=== PATIENT | male | born 1960 | race Caucasian/White ===

== ENCOUNTER 2016-02-16 17:54 | Emergency (ER) | payer OTHER ==
[~2016-02-16] VITALS: Ht 180.3 cm; Wt 99.7 kg
[~2016-02-16 17:54] MED LIST: ADVIN50050 INH; ALBUAER19 INH; BENZ100C7 PO; DXY100 PO; Fluticasone Propionate; GUAISYP4 PO; PRT40 PO; SNG10 PO
[2016-02-16 17:57] VITALS: TEMP 36.7; Ht 180.3 cm; Wt 99.7 kg
[2016-02-16] MEDS ORDERED: ONDANSETRON INJ 2 MG/ML 2 ML VIAL IV STA (18:07)
[2016-02-16] MEDS ORDERED: SODIUM CHLORIDE 0.9% 1000ML 1,000 ML IV STA (18:07)
--- NOTE | 2016-02-16 18:17 | EMERGENCY ROOM VISIT NOTE ---
History Report prepared by Savanah: Devora Foreman Under the Supervision of: Dr. Carlos Fuentes D.O. 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 He currently rates the pain as a 7/10 in severity. He states he also has been having nausea and vomiting and his abdomen feels bloated. The patient states that he also notices that he has tenderness in his testicles associated with his symptoms along with left sided back pain and occasionally sharp chest pain. He denies any fever or chills or blood in his stool. He states that he drinks occasionally and had 2 drinks last night at a family function but does not think that his drinking got out of control last night. He states that he has been treated for a respiratory infection lately but that his cough has not seemed to improve. He denies any history of kidney stones. 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 Review of Systems See HPI for pertinent positives & negatives. A total of 10 systems reviewed and were otherwise negative. Family History Cancer Social History Smoking Status: Never Smoker Alcohol Use: occasionally Marital Status: Housing Status: lives with family Occupation Status: employed Current/Historical Medications Scheduled Albuterol Inhaler (Ventolin Inhaler), 2 PUFFS INH QID Levofloxacin (Levaquin), 750 MG PO DAILY Ondasetron Odt (Zofran Odt), 4 MG SL Q6H Tamsulosin Hcl (Flomax), 0.4 MG PO DAILY Scheduled PRN Oxycodone Immediate Rel Tab (Roxicodone Ir), 1-2 TAB PO Q4H PRN for Severe Pain Allergies Coded Allergies: No Known Allergies (Verified , 02/16/16) Physical Exam Vital Signs Date Time Temp Pulse Resp B/P Pulse Ox O2 Delivery O2 Flow Rate FiO2 02/16/16 20:09 77 20 156/88 97 Room Air 02/16/16 18:33 67 02/16/16 17:57 36.7 78 20 164/96 96 Room Air Physical Exam GENERAL: Patient is awake, alert, somewhat anxious and uncomfortable. EYES: The conjunctivae are clear. The pupils are round and reactive. EARS, NOSE, MOUTH AND THROAT: The nose is without any evidence of any deformity. Mucous membranes are moist tongue is midline NECK: The neck is nontender and supple. RESPIRATORY: Normal respiratory effort is noted there is no evidence of wheezing rhonchi or rales CARDIOVASCULAR: Regular rate and rhythm noted there no murmurs rubs or gallops normal S1 normal S2 GASTROINTESTINAL: The abdomen moderately distended and tender, guarding in both left and right lower quadrants. BACK: No midline tenderness or or step-off noted range of motion in flexion extension as well as rotation no signs of muscle spasm noted. Right CVA tenderness to percussion, no left CVA tenderness. MUSCULOSKELETAL/EXTREMITIES: There is no evidence of gross deformity full range of motion is noted in the hips and shoulders SKIN: There is no obvious evidence of any rash. There are no petechiae, pallor or cyanosis noted. NEUROLOGIC: Patient is awake alert and oriented x3 strength is symmetric patellar reflexes are 2+ bilaterally Medical Decision & Procedures ER Provider Diagnostic Interpretation: X-ray results as stated below per interpretation by me and the radiologist. CHEST ONE VIEW PORTABLE CLINICAL HISTORY: Abdominal pain and nausea. COMPARISON STUDY: Chest radiograph February 06, 2016. FINDINGS: Lung volumes are normal. There is no pneumothorax or pleural effusion. Bibasilar opacities favor atelectasis. Cardiomediastinal silhouette is stable. There is no evidence of pulmonary edema. IMPRESSION: Diminished lung volumes with suspected bibasilar atelectasis. Electronically signed by: Onel Villar M.D. 02/16/2016 6:47 PM Dictated Date/Time: 02/16/2016 6:[address] results as stated below per my review and radiologist interpretation. CT OF THE ABDOMEN AND PELVIS WITHOUT CONTRAST CLINICAL HISTORY: Right flank pain. COMPARISON STUDY: No previous studies for comparison. TECHNIQUE: Axial images of the abdomen and pelvis were obtained without IV contrast. Images were reviewed in the axial, sagittal, and coronal planes. FINDINGS: There is mild to moderate right hydroureteronephrosis due to a 3 mm mid right ureteral calculus located at the level of the upper sacrum. No additional ureteral calculi are present. There is no left hydronephrosis. There is a gallstone within the gallbladder. Evaluation of the abdomen and pelvis is suboptimal on this unenhanced exam. The liver, spleen, adrenal glands and pancreas are unremarkable. There is no evidence for a bowel obstruction. There is left colon diverticulosis without evidence for acute diverticulitis. The appendix is normal. There is no lymphadenopathy. No suspicious skeletal lesions are identified. IMPRESSION: 1. 3 mm mid right ureteral calculus with resultant mild to moderate right hydroureteronephrosis. 2. Cholelithiasis. Electronically signed by: Onel Villar M.D. 02/16/2016 7:02 PM Dictated Date/Time: 02/16/2016 6:57 PM Laboratory Results 02/16/16 18:13 Red Blood Count 5.26, Mean Corpuscular Volume 82.1, Mean Corpuscular Hemoglobin 29.5, Mean Corpuscular Hemoglobin Concent 35.9, Mean Platelet Volume 8.9, Neutrophils (%) (Auto) 84.5, Lymphocytes (%) (Auto) 7.3, Monocytes (%) (Auto) 7.3, Eosinophils (%) (Auto) 0.2, Basophils (%) (Auto) 0.2, Neutrophils # (Auto) 10.95, Lymphocytes # (Auto) 0.95, Monocytes # (Auto) 0.95, Eosinophils # (Auto) 0.02, Basophils # (Auto) 0.02 02/16/16 18:13 Test 02/16/16 18:13 02/16/16 19:00 White Blood Count 12.95 K/uL (4.8-10.8) Red Blood Count 5.26 M/uL (4.7-6.1) Hemoglobin 15.5 g/dL (14.0-18.0) Hematocrit 43.2 % (42-52) Mean Corpuscular Volume 82.1 fL (80-100) Mean Corpuscular Hemoglobin 29.5 pg (25-34) Mean Corpuscular Hemoglobin Concent 35.9 g/dl (32-36) Platelet Count 314 K/uL (130-400) Mean Platelet Volume 8.9 fL (7.4-10.4) Neutrophils (%) (Auto) 84.5 % Lymphocytes (%) (Auto) 7.3 % Monocytes (%) (Auto) 7.3 % Eosinophils (%) (Auto) 0.2 % Basophils (%) (Auto) 0.2 % Neutrophils # (Auto) 10.95 K/uL (1.4-6.5) Lymphocytes # (Auto) 0.95 K/uL (1.2-3.4) Monocytes # (Auto) 0.95 K/uL (0.11-0.59) Eosinophils # (Auto) 0.02 K/uL (0-0.5) Basophils # (Auto) 0.02 K/uL (0-0.2) RDW Standard Deviation 39.0 fL (36.4-46.3) RDW Coefficient of Variation 12.9 % (11.5-14.5) Immature Granulocyte % (Auto) 0.5 % Immature Granulocyte # (Auto) 0.06 K/uL (0.00-0.02) Prothrombin Time 10.7 SECONDS (9.0-12.0) Prothromb Time International Ratio 1.0 (0.9-1.1) Activated Partial Thromboplast Time 28.2 SECONDS (21.0-31.0) Partial Thromboplastin Ratio 1.1 Anion Gap 11.0 mmol/L (3-11) Est Creatinine Clear Calc Drug Dose 104.6 ml/min Estimated GFR () 102.7 Estimated GFR (Non- 88.6 BUN/Creatinine Ratio 14.8 (10-20) Calcium Level 9.0 mg/dl (8.5-10.1) Total Bilirubin 0.6 mg/dl (0.2-1) Direct Bilirubin 0.1 mg/dl (0-0.2) Aspartate Amino Transf (AST/SGOT) 19 U/L (15-37) Alanine Aminotransferase (ALT/SGPT) 31 U/L (12-78) Alkaline Phosphatase 87 U/L (45-117) Total Creatine Kinase 74 U/L (39-308) Creatine Kinase MB 0.7 ng/ml (0.5-3.6) Creatine Kinase MB Ratio 0.9 (0-3.0) Troponin I < 0.015 ng/ml (0-0.045) Total Protein 7.3 gm/dl (6.4-8.2) Albumin 4.1 gm/dl (3.4-5.0) Lipase 98 U/L (73-393) Urine Color YELLOW Urine Appearance CLEAR (CLEAR) Urine pH 7.0 (4.5-7.5) Urine Specific [place] 1.018 (1.000-1.030) Urine Protein NEG (NEG) Urine Glucose (UA) NEG (NEG) Urine Ketones 2+ (NEG) Urine Occult Blood 2+ (NEG) Urine Nitrite NEG (NEG) Urine Bilirubin NEG (NEG) Urine Urobilinogen NEG (NEG) Urine Leukocyte Esterase SMALL (NEG) Urine WBC (Auto) 10-30 /hpf (0-5) Urine RBC (Auto) 10-30 /hpf (0-4) Urine Hyaline Casts (Auto) 1-5 /lpf (0-5) Urine Epithelial Cells (Auto) >30 /lpf (0-5) Urine Bacteria (Auto) NEG (NEG) Laboratory results per my review. Medications Administered Medications (Trade) Dose Ordered Sig/Erica Route Start Time Stop Time Status Last Admin Dose Admin Sodium Chloride (Nss 1000ml) 1,000 ml @ 999 mls/hr Q1H1M STAT IV 02/16/16 18:07 02/16/16 19:07 DC 02/16/16 18:21 999 MLS/HR Morphine Sulfate (MoRPHine SULFATE INJ) 4 mg Q15M PRN IV 02/16/16 18:15 02/16/16 20:35 DC 02/16/16 19:23 4 MG Ondansetron HCl (Zofran Inj) 4 mg NOW STAT IV 02/16/16 18:07 02/16/16 18:09 DC 02/16/16 18:21 4 MG Ketorolac Tromethamine (Toradol Inj) 30 mg NOW STAT IV 02/16/16 19:18 02/16/16 19:19 DC 02/16/16 19:23 30 MG Levofloxacin (Levaquin Tab) 750 mg ONE STAT PO 02/16/16 19:53 02/16/16 19:54 DC 02/16/16 20:08 750 MG Ondansetron HCl (ZOFRAN ODT 4MG Home Pack) 1 homepack UD ONCE PO 02/16/16 20:00 02/16/16 20:01 DC 02/16/16 20:08 1 HOMEPACK Oxycodone HCl (Roxicodone Immediate Rel 5MG Home Pack) 1 homepack UD ONCE PO 02/16/16 20:00 02/16/16 20:01 DC 02/16/16 20:08 1 HOMEPACK Tamsulosin HCl (Flomax Cap) 0.4 mg NOW ONCE PO 02/16/16 20:00 02/16/16 20:01 DC 02/16/16 20:08 0.4 MG ECG Indication: abdominal pain Rate (beats per minute): 65 Rhythm: normal sinus Findings: no ectopy, other (no acute ST segment elevation) Comparison ECG Date: August 28 2014 Change: no significant change ED Course 1805: The patient was evaluated in room C12B. A complete history and physical examination were performed. 1806: Ordered Zofran Inj 4 mg IV, NSS 1,000 ml @ 999 mls/hr IV 1814: Ordered Morphine Sulfate 4 mg IV 1917: Ordered Toradol Inj 30 mg IV 1952: Ordered Levaquin Tab 750 mg PO. 1954: Upon reevaluation, the patient is resting comfortably expressing the desire to go home. I discussed the results and treatment plan with him. He verbalized agreement of the treatment plan. The patient was discharged home. 1999: Ordered Flomax Cap 0.4 mg PO, Oxycodone HCl 1 homepack PO, Ondansetron HCl 1 homepack PO. Medical Decision Differential diagnosis: Etiologies such as appendicitis, diverticulitis, PUD, biliary pathology, UTI, pancreatitis, obstruction, mesenteric ischemia, aortic pathology, infections, inflammatory bowel disease, renal colic, as well as others were entertained. Nursing notes reviewed. The patient is a 55-year-old male who presented to the emergency department for evaluation of right flank pain. The patient's history and physical exam appeared to be consistent with renal colic. Patient was treated with IV fluids IV pain medicine and IV antiemetics the emergency department. He was also given antibiotics in the emergency department after his urinalysis revealed signs of possible infection. I discussed the patient's laboratory and radiographic studies with him. He was reevaluated multiple times. On subsequent reevaluation he was feeling somewhat better but he was certainly not pain-free. The patient was started on Flomax as well. I offered to have the patient evaluated by the hospitalist for possible inpatient management and further pain management. The patient did not wish to stay in the hospital. He wanted to be discharged to home. He was started on a course of antibiotics and pain medication. He was encouraged to drink plenty clear liquids and follow-up with his family doctor this week. He was also encouraged to return to the emergency department immediately if symptoms change worsen or the need arises. Impression Primary Impression: Renal colic on right side Additional Impressions: Hydronephrosis of right kidney, Right flank pain, Right kidney stone Scribe Attestation The scribe's documentation has been prepared under my direction and personally reviewed by me in its entirety. I confirm that the note above accurately reflects all work, treatment, procedures, and medical decision making performed by me. Departure Information Dispostion Home / Self-Care Prescriptions Levofloxacin (Levaquin) 750 Mg Tab 750 MG PO DAILY, #7 TAB Prov: Carlos Fuentes, DO 02/16/16 Ondasetron Odt (ZOFRAN ODT) 4 Mg Tab 4 MG SL Q6H for Nausea, #15 TAB Prov: Carlos Fuentes, DO 02/16/16 Oxycodone Immediate Rel Tab (ROXICODONE IR) 5 Mg Tab 1-2 TAB PO Q4H Y for Severe Pain, #24 TAB Prov: Carlos Fuentes, DO 02/16/16 Tamsulosin Hcl (FLOMAX) 0.4 Mg Cap 0.4 MG PO DAILY, #10 CAP Prov: Carlos Fuentes, DO 02/16/16 Referrals Robin Butts M.D. (PCP) Forms Call Back Authorization, HOME CARE DOCUMENTATION FORM, IMPORTANT VISIT INFORMATION, My [facility] Patient Instructions A Signature Page Additional Instructions Call your family to schedule a follow-up appointment tomorrow. Drink plenty of clear liquids. Continue all medications as prescribed. Continue using Motrin and Tylenol as directed for mild pain. Return to the emergency department immediately if symptoms change worsen or if the need arises. Especially return if he develops severe pain which is not controlled by the pain medication high fever severe nausea vomiting or any other worrisome symptoms.
[2016-02-16] MEDS: MoRPHine SULFATE 4 MG/ML 1 ML CARP\\VIAL IV PRN ×2 (18:21→19:23)
[2016-02-16 18:26] LABS: BASO % 0.2 %; BASO ABS # 0.02 K/uL (0-0.2); COMPLETE YES; EOS % 0.2 %; HEMATOCRIT 43.2 % (42-52); IG% 0.5 %; LYMPH % 7.3 %; LYMPH ABS # 0.95 K/uL (1.2-3.4); MEAN CELL VOLUME 82.1 fL (80-100); MEAN CORPUSCULAR HEMOGLOBIN 29.5 pg (25-34); MEAN CORPUSCULAR HGB CONC 35.9 g/dl (32-36); MEAN PLATELET VOLUME 8.9 fL (7.4-10.4); MONO % 7.3 %; NEUT % 84.5 %; PLATELET COUNT 314 K/uL (130-400); RED BLOOD COUNT 5.26 M/uL (4.7-6.1); WHITE BLOOD COUNT 12.95 K/uL (4.8-10.8)
[2016-02-16 18:37] LABS: PARTIAL THROMBOPLASTIN RATIO 1.1; PROTHROMBIN TIME (PATIENT) 10.7 SECONDS (9.0-12.0)
--- NOTE | 2016-02-16 18:49 | DIAGNOSTIC IMAGING REPORT ---
CHEST ONE VIEW PORTABLE CLINICAL HISTORY: Abdominal pain and nausea. COMPARISON STUDY: Chest radiograph February 06, 2016. FINDINGS: Lung volumes are normal. There is no pneumothorax or pleural effusion. Bibasilar opacities favor atelectasis. Cardiomediastinal silhouette is stable. There is no evidence of pulmonary edema. IMPRESSION: Diminished lung volumes with suspected bibasilar atelectasis. Electronically signed by: Onel Villar M.D. 02/16/2016 6:47 PM Dictated Date/Time: 02/16/2016 6:46 PM
[2016-02-16 18:51] LABS: ALT/SGPT 31 U/L (12-78); BLOOD UREA NITROGEN 14 mg/dl (7-18); BUN/CREATININE RATIO 14.8 (10-20); CARBON DIOXIDE 24 mmol/L (21-32); CHLORIDE 104 mmol/L (98-107); CREATININE 0.96 mg/dl (0.60-1.40); GLUCOSE 96 mg/dl (70-99); POTASSIUM 4.2 mmol/L (3.5-5.1); SODIUM 139 mmol/L (136-145)
[2016-02-16 18:56] LABS: ALKALINE PHOSPHATASE 87 U/L (45-117); AST/SGOT 19 U/L (15-37); CKMB/CK RATIO 0.9 (0-3.0)
--- NOTE | 2016-02-16 19:03 | DIAGNOSTIC IMAGING REPORT ---
CT OF THE ABDOMEN AND PELVIS WITHOUT CONTRAST CLINICAL HISTORY: Right flank pain. COMPARISON STUDY: No previous studies for comparison. TECHNIQUE: Axial images of the abdomen and pelvis were obtained without IV contrast. Images were reviewed in the axial, sagittal, and coronal planes. FINDINGS: There is mild to moderate right hydroureteronephrosis due to a 3 mm mid right ureteral calculus located at the level of the upper sacrum. No additional ureteral calculi are present. There is no left hydronephrosis. There is a gallstone within the gallbladder. Evaluation of the abdomen and pelvis is suboptimal on this unenhanced exam. The liver, spleen, adrenal glands and pancreas are unremarkable. There is no evidence for a bowel obstruction. There is left colon diverticulosis without evidence for acute diverticulitis. The appendix is normal. There is no lymphadenopathy. No suspicious skeletal lesions are identified. IMPRESSION: 1. 3 mm mid right ureteral calculus with resultant mild to moderate right hydroureteronephrosis. 2. Cholelithiasis. Electronically signed by: Onel Villar M.D. 02/16/2016 7:02 PM Dictated Date/Time: 02/16/2016 6:57 PM
[2016-02-16] MEDS ORDERED: KETOROLAC TROMETHAMINE 30 MG/ML VIAL IV STA (19:18)
[2016-02-16 19:46] LABS: URINE APPEARANCE CLEAR (CLEAR); URINE BILIRUBIN NEG (NEG); URINE COLOR YELLOW; URINE EPITHELIAL CELL AUTO >30 /lpf (0-5); URINE NITRITE NEG (NEG); URINE SPECIFIC GRAVITY 1.018 (1.000-1.030); UROBILINOGEN NEG (NEG)
[2016-02-16 19:50] LABS: MANUAL MICROSCOPIC REQUIRED? NO; REVIEW REQ? NO
[2016-02-16] MEDS ORDERED: LEVOFLOXACIN 750 MG TAB PO STA (19:53)
[2016-02-16] MEDS ORDERED: TAMS0.4C38 PO (19:59)
[2016-02-16] MEDS ORDERED: ONDA4TAB10 SL (19:59)
[2016-02-16] MEDS ORDERED: OXYC1TAB3 PO (19:59)
[2016-02-16] MEDS ORDERED: LEVO1TAB35 PO (19:59)
[2016-02-16] MEDS ORDERED: ONDANSETRON HOME PACK 4MG OD TAB PO ONE (20:00)
[2016-02-16] MEDS ORDERED: TAMSULOSIN HCL 0.4 MG CAP PO ONE (20:00)
[2016-02-16] MEDS ORDERED: OXYCODONE IR HOME PACK PO ONE (20:00)
[2016-02-16 20:09] VITALS: BP 156/88; PULSE 77; O2SAT 97
== END 2016-02-16 20:26 | disposition home or self-care (01) ==
LOC: C.EDB 17:56 → C.EDC 20:26
DX: N23 Unspecified renal colic (principal); N13.2 Hydronephrosis with renal and ureteral calculous obstruction; Z80.9 Family history of malignant neoplasm, unspecified; Z79.899 Other long term (current) drug therapy

== ENCOUNTER → 2016-02-26 | Outpatient (CLI) | payer OTHER ==
[~2016-02-26] MED LIST changes: -ADVIN50050 INH; -BENZ100C7 PO; +CIPR-255 PO; -DXY100 PO; -Fluticasone Propionate; -GUAISYP4 PO; +LEVO1TAB35 PO; +METR-162 PO; +ONDA4TAB10 SL; +OXYC1TAB3 PO; -PRT40 PO; -SNG10 PO; +TAMS0.4C38 PO; +VNTHFA/IN INH
--- NOTE | 2016-02-27 06:17 | PAP/PSG TECHNICIAN REPORT ---
[facility] Supervisor Carpenters Polysomnogram Report Study name: None Report date: 02/27/2016 Study date: 02/26/2016 Referring Physician: Daly Oliva PA-C, PA-C Name: ZHOU FERRER Interpreting Physician: Joe Troncoso M.D. Date of : 1960 Supervisor Carpenters: Karuna Velasquez RPS. Sex: Male Age: 55 Study Type: PSG Weight: 216 lbs Height: 55 years, Height 5' 11" BMI: 30.12 Medications: MULTI VIT, VIT C 500 MG Patient History 55 yr-old male here for a baseline study. He has a history of snoring, daytime sleepiness, morning headaches, and frequent awakenings. His [place] scale is 6. He slept with the head of his bed elevated. The test was started on room air. ETCO2 testing was not utilized during this study. Room 7 Parameters Monitored NPSG: E1-M2, E2-M1, Fp1-M2, Fp2-M1, F3-M2, F4-M2, F4-M1, C3-M2, C4-M2, C4-M1, O1-M2, O2-M2, O2-M1, T3-M2, T4-M1, P3-M2, P4-M1, CHIN1, CHIN2, HR, EKG, Legs, PFLOW, SNOR, FLOW, CFLOW, [place] Volume, THOR, ABDO, SpO2, PLTH, CPRESS, ETCO2 Wave, ETCO2, pH Sleep Architecture Sleep Stages Time at Lights Off 10:30:09 PM STAGES Time (min.) TST (%) Time at Lights On 5:52:09 AM Wake 17.0 -- Total Recording Time (TRT) 442.00 min. N1 36.5 9 Total Sleep Period (TSP) 439.0 min. N2 252.5 59 Total Sleep Time (TST) 425.0min. N3 30.0 7 Awake Time 17.0 min. REM 106.0 25 Wake after Sleep Onset 14.0 min. Sleep Efficiency (SE) 96 % Sleep Onset Latency (TREASURE) 3.0 min. Number of Stage 1 Shifts None Awakenings 11 Stage Changes 87 Number of REM periods 6 REM 106.0 25 REM Latency 51.5 min. NREM 319.0 75 Body Position Analysis Supine Right Left Side Prone Vertical Total Sleep Time (min.) 412.4 28.6 0.0 28.60 0.0 0.0 Total Sleep Time (%) 93% 7% 0% 7 0% N/A% Total Sleep Time REM (min.) 106.0 0.0 0.0 None 0.0 0.0 Total Sleep Time NREM (min.) 290.4 28.6 0.0 None 0.0 0.0 Intermittent Wake (min.) 16.0 1.0 0.0 None 0.0 0.0 Total Sleep Period (%) 93% None None None None None Arousals Myoclonus (PLM) * Events Count Index Events Count Index Spontaneous 60 8 Events Awake (PLMW) 17 60.0 Respiratory 2 0.4 Events Asleep w/ Arousal (PLMA) 27 3.8 PLM 27 4 Events Asleep w/o Arousal (PLMS) 177 25.0 Snoring 8 1 Total Asleep 204 28.8 Total 96 14 Total 221 30 Respiratory Analysis * CA OA MA CH H RERA Total Count 4 4 0 0 26 3 34 Index 0.6 0.6 0.0 0 3.7 0 5.2 Mean Duration 12.5 12.6 0.0 0.00 15.1 14.7 14.5 Longest Duration 14.5 14.0 0.0 0.00 0.0 14.9 18.5 Respiratory Event Summary Total Supine ~Supine Right Left Prone REM NREM Apneas Count 8 8 0 0 N/A N/A 0 8 Index 1.1 1 0 0.0 N/A N/A 0 2 Hypopneas (4% Desat) Count 26 26 0 0 N/A N/A 18 8 Index 3.7 3.9 0 0.0 N/A N/A 10.2 1.5 Apneas & All Hypopneas Count 34 34 0 0 N/A N/A 18 16 Index 4.8 5 0 0 N/A N/A 10.2 3.0 Respiratory Events (Floriculturist+All Hyp+RERA) Count 34 37 0 0 N/A N/A 18 16 Index 5.2 6 0 0.0 N/A N/A 10.8 3.4 Respiratory Related Arousal Count 2 37 0 0 N/A N/A 1 2 Index 0.4 0 0 0 N/A N/A 1 0 Snoring Analysis Supine Right Left Prone REM NREM Total Snore duration 5.0 min Snores count 284 22 N/A N/A 116 190 306 Snore mean duration 1.0 Sec Snores index 43 46 N/A N/A 65.7 35.7 43.2 TST with snoring (%) 1.2% Desaturation Event Summary: Minimum %SpO2 Event Count Mean/Min/Max Duration(sec.) Desaturation Index % Time In Bed > 90 38 29.2 / 8.3 / 60.0 6.0 86.6 86 - 90 4 14.9 / 8.3 / 26.3 4.0 13.4 81 - 85 0 N/A 0.0 0.0 76 - 80 0 N/A 0.0 0.0 71 - 75 0 N/A 0.0 0.0 66 - 70 0 N/A 0.0 0.0 61 - 65 0 N/A 0.0 0.0 56 - 60 0 N/A 0.0 0.0 51 - 55 0 N/A 0.0 0.0 < 50 0 N/A 0.0 0.0 Total REM NREM Awake <50% 0.0 min. 0.0 min. 0.0 min. 0.0 min. 51 - 60% 0.0 min. 0.0 min. 0.0 min. 0.0 min. 61 - 70% 0.0 min. 0.0 min. 0.0 min. 0.0 min. 71 - 80% 0.0 min. 0.0 min. 0.0 min. 0.0 min. 81 - 90% 59.3 min. 21.8 min. 37.5 min. 0.0 min. 91 - 100% 382.5 min. 84.2 min. 281.6 min. 16.8 min. Average 92 92 92 93 Minimum SpO2 86 86 88 91 Desaturation Event Index 5.2 10.8 3.4 3.5 # Desat. Events below 89% 13 11 2 N/A Time(%) with Saturation below 89% 0.7 0.6 0.1 0.0 Time(min.) with Saturation below 89% 3.0 2.7 0.3 0.0 Time (mins) REM (mins) NREM (mins) % of TST SpO2 Below 90% 30 18 N12 2.3 SpO2 Below 88% 6 0 0 0 Heart Rate Analysis Min (bpm) Max (bpm) Average (bpm) Awake 58 96 68 NREM 55 80 62 REM 53 93 62 Overall 53 93 62 Supplemental O2 Values Minimum O2 level: None Value Start Time End Time Supervisor Carpenters Comments Mr. Ferrer slept in the right and supine positions. No cardiac arrhythmias were noted. PLMs were noted throughout the study. No bruxism noted. Snoring was noted and scored as a 2 on a scale of 1 through 5. (0=no snoring, 5=snoring loud enough to be heard through a closed door or down the [address]in way) He did not wake up to use the restroom during the night. Mr. Ferrer stated that he didn't sleep quite as well as at home The final report will be interpreted and signed by a sleep physician. The completed physician report will then be placed in the patient medical record. Therapy (cm H2O) 0 TIB (min.) 442.0 TST (min.) 425.0 Sleep Onset (min.) 3.0 REM Onset From Sleep (min.) 51.5 Sleep Efficiency % 96 Wakefulness (%) 4 Wakefulness (min.) 17.0 NREM 1 (%) 9 NREM 1 (min.) 36.5 NREM 2 (%) 59 NREM 2 (min.) 252.5 NREM 3 (%) 7 NREM 3 (min.) 30.0 REM (%) 25 REM (min.) 106.0 # Arousals 96 Arousal Index 14 # Snore 306 Snore Index 43.2 AHI 4.8 AHI Supine 5 AHI Non-Supine 0 NREM AHI 3.0 REM AHI 10.2 RDI 5.2 # Obstructive Apnea 4 # Central Apnea 4 # Mixed Apnea 0 # Hypopneas 26 RERAs 3 Total Respiratory Events 37 Time Below SpO2 89% (min.) 3.0 Mean NREM SpO2 (%) 92 Mean REM SpO2 (%) 92 Mean Sleep SpO2 (%) 92 Min NREM SpO2 (%) 88 Min REM SpO2 (%) 86 Position Supine (min.) 412.4 Position Non-supine (min.) 28.6 LM Index Sleep 28.8 LM Index NREM 36.3 LM Index REM 6.2 Mean Heart Rate (bpm) 62 Min Heart Rate (bpm) 53
--- NOTE | 2016-02-28 02:58 | POLYSOMNOGRAPH REPORT ---
CLINICAL DATA: A 55-year-old male with BMI of 30 referred by Daly Oliva, Dr. Black and Dr. Butts for evaluation of possible sleep apnea, who has a history of snoring, daytime sleepiness, morning headache and frequent awakenings. He did sleep with head of his bed elevated. SLEEP ARCHITECTURE: Total sleep period was 439 minutes. Total sleep time was 425 minutes divided between 319 minutes of non-REM sleep and 106 minutes of REM sleep. Sleep onset latency was 3 minutes. REM latency was 51.5 minutes. Sleep efficiency was 96%. Awake after sleep onset was 14 minutes. Sleep consisted of stage N1 9%, N2 59%, N3 7%, and REM 25%. AROUSAL DATA: 96 arousals recorded for an index of 14 per hour. 60 were spontaneous arousals. PLM DATA: Mildly elevated limb movements during sleep were noted. There were 204 limb movements during sleep were noted for an index of 28.8 per hour with arousal index of 3.8 per hour. RESPIRATORY DATA: There was no evidence of clinically significant sleep apnea/hypopnea was noted. The AHI was 4.8. There were 4 central and 4 obstructive apneic episodes. The longest duration of apnea was 14.5 seconds. There were 26 hypopneic episodes. The mean duration of hypopnea was 15.1 seconds. OXIMETRY DATA: Transient nocturnal hypoxemia was seen. Oxygen tia was 86%. Mean saturation was 92%. Time below 88% was 86 minutes. EKG: Heart rates ranged from 55-93 beats per minute. No arrhythmias were noted. COMMUNICATIONS ADVISOR'S COMMENTS: The patient slept in the right and supine positions. PLMs were noted throughout the study. Snoring was mild, rated 2 on a scale of 1-5. IMPRESSION: No evidence of clinically significant sleep apnea/hypopnea with an apnea-hypopnea index of 4.8 with mild nocturnal hypoxemia and mildly elevated limb movements during sleep. RECOMMENDATIONS: The patient may benefit from weight loss or possibly an oral appliance for snoring. Clinical correlation is needed. KSENIA
== END | disposition home or self-care (01) ==
LOC: C.NEUR 21:00
PROVIDERS: ATTEND Internal Medicine Pulmonary Disease
DX: R40.0 Somnolence (principal); R06.83 Snoring; J42 Unspecified chronic bronchitis; R05 Cough; R91.1 Solitary pulmonary nodule

== ENCOUNTER 2016-07-20 13:52 | Emergency (ER) | payer OTHER ==
[~2016-07-20] VITALS: Ht 180.3 cm; Wt 99.7 kg
[~2016-07-20 13:52] MED LIST changes: -CIPR-255 PO; -METR-162 PO; -TAMS0.4C38 PO; -VNTHFA/IN INH
[2016-07-20 13:54] VITALS: TEMP 36.8; Ht 180.3 cm; Wt 99.7 kg
--- NOTE | 2016-07-20 14:05 | EMERGENCY ROOM VISIT NOTE ---
History Report prepared by Savanah: Nba Rocha Under the Supervision of: Dr. Carlos Fuentes D.O. First contact with patient: 13:58 Chief Complaint: ABDOMINAL PAIN Stated Complaint: LOWER ABD. PAIN History of Present Illness The patient is a 55 year old male who presents to the Emergency Room with complaints of constant lower abdominal pain beginning two days ago. He has a history of kidney stones and states that his current symptoms feel similar. He has been seen by his urologist for his pain, who thinks that his pain is likely diverticulitis. The patient also complains of nausea, and mild right sided back pain. He denies any vomiting, black or bloody stools, or fevers. He has no history of diverticulitis or surgeries. Source of History: patient Onset: Two days ago Position: abdomen (lower) Timing: constant Associated Symptoms: + nausea, + back pain (mild right side), No fevers, No vomiting, No melena, No hematochezia Review of Systems See HPI for pertinent positives & negatives. A total of 10 systems reviewed and were otherwise negative. Past Medical & Surgical Medical Problems: (1) Allergic rhinitis (2) Bronchitis (3) No Known Active Medical Problems (4) Pneumonia (5) Syncope Family History Cancer Social History Smoking Status: Never Smoker Alcohol Use: occasionally Marital Status: Housing Status: lives with family Occupation Status: employed Current/Historical Medications Scheduled Albuterol Hfa (Ventolin Hfa), 2-4 PUFFS INH Q6H Ciprofloxacin Hcl (Cipro), 500 MG PO BID Metronidazole (Flagyl), 500 MG PO TID Scheduled PRN Oxycodone Immediate Rel Tab (Roxicodone Ir), 1-2 TAB PO Q4H PRN for Severe Pain Allergies Coded Allergies: No Known Allergies (Verified , 07/20/16) Physical Exam Vital Signs Date Time Temp Pulse Resp B/P (MAP) Pulse Ox O2 Delivery O2 Flow Rate FiO2 07/20/16 15:28 58 17 112/55 96 Room Air 07/20/16 15:07 59 07/20/16 13:54 36.8 74 22 112/79 96 Room Air Physical Exam GENERAL: Patient is awake, alert, and in no acute distress. Patient is resting comfortably and showing no signs of anxiety EYES: The conjunctivae are clear. The pupils are round and reactive. EARS, NOSE, MOUTH AND THROAT: The nose is without any evidence of any deformity. Mucous membranes are moist tongue is midline NECK: The neck is nontender and supple. RESPIRATORY: Normal respiratory effort is noted there is no evidence of wheezing rhonchi or rales CARDIOVASCULAR: Regular rate and rhythm noted there no murmurs rubs or gallops normal S1 normal S2 GASTROINTESTINAL: The abdomen is moderately distended but soft. Bilateral lower abdominal tenderness to palpation with guarding in the RLQ. PELVIS: The Pelvis is stable. No tenderness to palpation is noted. BACK: Bilateral CVA tenderness to percussion, left greater than right. No midline tenderness. MUSCULOSKELETAL/EXTREMITIES: There is no evidence of gross deformity full range of motion is noted in the hips and shoulders SKIN: There is no obvious evidence of any rash. There are no petechiae, pallor or cyanosis noted. NEUROLOGIC: Patient is awake alert and oriented x3 Medical Decision & Procedures ER Provider Diagnostic Interpretation: CT results as stated below per my review and radiologist interpretation. ABDOMEN AND PELVIS CT WITHOUT CONTRAST FINDINGS: Focal thickening at the proximal sigmoid colon with mild pericolonic fat stranding. This is consistent with acute diverticulitis. No perforation or abscess identified at this time. Multiple colonic diverticula. Normal appendix. Tiny fat-containing umbilical hernia. Linear densities in groundglass densities within the bilateral lower lobes consistent with atelectasis. There are 2, 5 mm subpleural nodule seen within the left lower lobe and lingula on images 64 and 66 of 516. These are new from the prior study. Hepatic steatosis. Cholelithiasis. No gallbladder wall thickening. The unenhanced spleen, pancreas, and adrenal glands are unremarkable. No renal stones or hydronephrosis. No retroperitoneal lymphadenopathy. Mild bladder wall thickening is likely due to underdistention. The prostate gland is mildly enlarged. IMPRESSION: 1. Acute proximal sigmoid diverticulitis. No perforation or abscess at this time. 2. No renal stones or hydronephrosis. 3. Cholelithiasis. 4. Hepatic steatosis. 5. There are two, 5 mm indeterminate pulmonary nodules within the left lung base. Please refer to the chart below for recommended follow-up. Please refer to below summary of Fleischner criteria recommendations for follow-up of incidental CT nodules (Donna Gillespie, Guidelines for management of small pulmonary nodules detected on CT scans: A statement from the Fleischner Society, Radiology 237: [phone].) SOLID NODULES Solitary nodule size: <6 mm * Low risk patients: no follow-up needed * high risk patients: optional CT at 12 months Solitary nodule size: 6-8 mm * Low risk patients: follow-up at 6-12 months, then consider further follow-up at 18-24 months * high risk patients: initial follow-up CT at 6-12 months and then at 18-24 months if no change Solitary nodule size: >8 mm * either low or high risk patients - consider follow-up CT at 3 months, and/or CT-PET, and/or biopsy Multiple nodules size: <6 mm * Low risk patients: no routine follow-up * high risk patients: optional CT at 12 months Multiple nodules size: 6-8 mm * Low risk patients: follow-up at 3-6 months, then consider further follow-up at 18-24 months * high risk patients: follow-up at 3-6 months, then at 18-24 months if no change Multiple nodules size: >8 mm * Low risk patients: follow-up at 3-6 months, then consider further follow-up at 18-24 months * high risk patients: follow-up at 3-6 months, then at 18-24 months if no change Note: newly detected indeterminate nodule in persons 35 years of age or older. * Low risk patients: minimal or absent history of smoking and/or other known risk factors * high risk patients: history of smoking or of other known risk factors (e.g. first degree relative with lung cancer, or exposure to asbestos, radon, uranium) * if a nodule up to 8 mm is partly solid or is ground glass further follow-up is required after 24 months to exclude possible slow growing adenocarcinoma (WILMER) SUBSOLID NODULES Solitary pure ground-glass nodule * nodule size <6 mm - no CT follow-up required * nodule size >=6 mm - follow-up CT at 6-12 months, then every 2 years until 5 years Solitary part-solid nodule * nodule size <6 mm - no CT follow-up required * nodule size >=6 mm - follow-up CT at 3-6 months. If unchanged, and solid component remains <6 mm, then annual follow-up for 5 years Multiple subsolid nodules * nodule size <6 mm - follow-up CT at 3-6 months, consider further follow-up at 2 and 4 years if stable * nodule size >=6 mm - follow-up CT at 3-6 months, subsequent management based on the most suspicious nodule(s) Electronically signed by: Felton Benito M.D. Laboratory Results 07/20/16 14:20 Red Blood Count 5.00, Mean Corpuscular Volume 83.4, Mean Corpuscular Hemoglobin 30.0, Mean Corpuscular Hemoglobin Concent 36.0, Mean Platelet Volume 9.2, Neutrophils (%) (Auto) 68.1, Lymphocytes (%) (Auto) 18.2, Monocytes (%) (Auto) 12.2, Eosinophils (%) (Auto) 1.1, Basophils (%) (Auto) 0.1, Neutrophils # (Auto ) 4.86, Lymphocytes # (Auto) 1.30, Monocytes # (Auto) 0.87, Eosinophils # (Auto ) 0.08, Basophils # (Auto) 0.01 07/20/16 14:20 Test 07/20/16 14:20 White Blood Count 7.14 K/uL (4.8-10.8) Red Blood Count 5.00 M/uL (4.7-6.1) Hemoglobin 15.0 g/dL (14.0-18.0) Hematocrit 41.7 % (42-52) Mean Corpuscular Volume 83.4 fL (80-100) Mean Corpuscular Hemoglobin 30.0 pg (25-34) Mean Corpuscular Hemoglobin Concent 36.0 g/dl (32-36) Platelet Count 260 K/uL (130-400) Mean Platelet Volume 9.2 fL (7.4-10.4) Neutrophils (%) (Auto) 68.1 % Lymphocytes (%) (Auto) 18.2 % Monocytes (%) (Auto) 12.2 % Eosinophils (%) (Auto) 1.1 % Basophils (%) (Auto) 0.1 % Neutrophils # (Auto) 4.86 K/uL (1.4-6.5) Lymphocytes # (Auto) 1.30 K/uL (1.2-3.4) Monocytes # (Auto) 0.87 K/uL (0.11-0.59) Eosinophils # (Auto) 0.08 K/uL (0-0.5) Basophils # (Auto) 0.01 K/uL (0-0.2) RDW Standard Deviation 38.2 fL (36.4-46.3) RDW Coefficient of Variation 12.6 % (11.5-14.5) Immature Granulocyte % (Auto) 0.3 % Immature Granulocyte # (Auto) 0.02 K/uL (0.00-0.02) Urine Color YELLOW Urine Appearance CLEAR (CLEAR) Urine pH 5.5 (4.5-7.5) Urine Specific [place] 1.019 (1.000-1.030) Urine Protein NEG (NEG) Urine Glucose (UA) NEG (NEG) Urine Ketones 1+ (NEG) Urine Occult Blood NEG (NEG) Urine Nitrite NEG (NEG) Urine Bilirubin NEG (NEG) Urine Urobilinogen NEG (NEG) Urine Leukocyte Esterase NEG (NEG) Anion Gap 8.0 mmol/L (3-11) Est Creatinine Clear Calc Drug Dose 115.4 ml/min Estimated GFR () 112.6 Estimated GFR (Non- 97.2 BUN/Creatinine Ratio 12.4 (10-20) Calcium Level 8.3 mg/dl (8.5-10.1) Total Bilirubin 1.3 mg/dl (0.2-1) Direct Bilirubin 0.2 mg/dl (0-0.2) Aspartate Amino Transf (AST/SGOT) 16 U/L (15-37) Alanine Aminotransferase (ALT/SGPT) 27 U/L (12-78) Alkaline Phosphatase 106 U/L (45-117) Total Protein 7.1 gm/dl (6.4-8.2) Albumin 3.9 gm/dl (3.4-5.0) Lipase 79 U/L (73-393) Laboratory results per my review. Medications Administered Medications (Trade) Dose Ordered Sig/Erica Route Start Time Stop Time Status Last Admin Dose Admin Sodium Chloride 1,000 ml @ 999 mls/hr Q1H1M STAT IV 07/20/16 14:06 07/20/16 15:06 DC 07/20/16 14:06 999 MLS/HR Ciprofloxacin (Cipro Tab) 500 mg NOW STAT PO 07/20/16 14:55 07/20/16 14:56 DC 07/20/16 15:32 500 MG Metronidazole (Flagyl Tab) 500 mg NOW STAT PO 07/20/16 14:55 07/20/16 14:56 DC 07/20/16 15:32 500 MG ED Course 1402: The patient was evaluated in room C12B. A complete history and physical examination were performed. 1406: Ordered NSS 1,000 ml @ 999 mls/hr IV. 1455: Ordered Flagyl Tab 500 mg PO, Cipro Tab 500 mg PO. 1520: Upon reevaluation, the patient is resting comfortably. I discussed the results and treatment plan with him. He verbalized agreement of the treatment plan. The patient was discharged home. Medical Decision Differential diagnosis: Etiologies such as appendicitis, diverticulitis, PUD, biliary pathology, UTI, pancreatitis, obstruction, mesenteric ischemia, aortic pathology, infections, inflammatory bowel disease, renal colic, as well as others were entertained. Blood pressure screening: Patient was found to have normal blood pressure on screening and does not require follow-up. Medication Reconciliation: I attest that I have personally reviewed the patient' s current medications list. Nursing notes reviewed. The patient is a 55-year-old male who presented to the emergency department for lower abdominal pain. The patient is a history of kidney stones and had a problem with kidney stones earlier this year so he went to see his urologist for a follow-up appointment. He was sent to the emergency department by the urologist because of possible diverticulitis. The patient's history and physical exam appeared to be consistent with diverticulitis and his CAT scan did reveal diverticulitis as well. He was started on antibiotics new or department. He was treated with IV fluids. He was unable to get pain medication in the emergency department because he did not wish to call for a ride but he was given a prescription for pain medication upon discharge. I discussed the patient's laboratory and radiographic studies with him including the findings of the pulmonary nodule on CAT scan. He was encouraged to follow-up with his family doctor this week for reevaluation but return to the emergency apartment immediately if symptoms change worsen or the need arises. Impression Primary Impression: Diverticulitis Scribe Attestation The scribe's documentation has been prepared under my direction and personally reviewed by me in its entirety. I confirm that the note above accurately reflects all work, treatment, procedures, and medical decision making performed by me. Departure Information Dispostion Home / Self-Care Prescriptions Oxycodone Immediate Rel Tab (ROXICODONE IR) 5 Mg Tab 1-2 TAB PO Q4H Y for Severe Pain, #24 TAB Prov: Carlos Fuentes, DO 07/20/16 Metronidazole (FLAGYL) 500 Mg Tab 500 MG PO TID, #30 TAB Prov: Carlos Fuentes, DO 07/20/16 Ciprofloxacin Hcl (CIPRO) 500 Mg Tab 500 MG PO BID, #20 TAB Prov: Carlos Fuentes, DO 07/20/16 Referrals Robin Butts M.D. (PCP) Forms Call Back Authorization, HOME CARE DOCUMENTATION FORM, IMPORTANT VISIT INFORMATION Patient Instructions Diverticulosis Diverticulitis, [facility] Additional Instructions Continue all medications as prescribed. Drink plenty clear liquids. Continue using Motrin and Tylenol as directed for mild pain. Follow-up with your family this week. Return to the emergency department immediately if symptoms change worsen or the need arises. Problem Qualifiers Primary Impression: Diverticulitis Diverticulitis site: large intestine Diverticulitis bleeding: without bleeding Diverticulitis complication: without perforation or abscess Qualified Codes: K57.32 - Diverticulitis of large intestine without perforation or abscess without bleeding
[2016-07-20] MEDS ORDERED: SODIUM CHLORIDE 0.9% 1000ML 1,000 ML IV STA (14:06)
[2016-07-20] MEDS ORDERED: VNTHFA/IN INH (14:14)
[2016-07-20 14:37] LABS: BASO % 0.1 %; BASO ABS # 0.01 K/uL (0-0.2); COMPLETE YES; EOS % 1.1 %; HEMATOCRIT 41.7 % (42-52); IG% 0.3 %; LYMPH % 18.2 %; MEAN CELL VOLUME 83.4 fL (80-100); MEAN PLATELET VOLUME 9.2 fL (7.4-10.4); MONO % 12.2 %; NEUT % 68.1 %; PLATELET COUNT 260 K/uL (130-400); WHITE BLOOD COUNT 7.14 K/uL (4.8-10.8)
[2016-07-20 14:53] LABS: BUN/CREATININE RATIO 12.4 (10-20); CALCIUM 8.3 mg/dl (8.5-10.1); CREATININE 0.87 mg/dl (0.60-1.40); POTASSIUM 3.8 mmol/L (3.5-5.1)
--- NOTE | 2016-07-20 14:54 | DIAGNOSTIC IMAGING REPORT ---
ABDOMEN AND PELVIS CT WITHOUT CONTRAST CT DOSE: 1117.58 mGycm HISTORY: left abdominal sided pain, hx of kidney stones, poss diverticulitis TECHNIQUE: Multiaxial CT images of the abdomen and pelvis were performed without contrast. COMPARISON STUDY: Abdomen and pelvis CT 02/16/2016. FINDINGS: Focal thickening at the proximal sigmoid colon with mild pericolonic fat stranding. This is consistent with acute diverticulitis. No perforation or abscess identified at this time. Multiple colonic diverticula. Normal appendix. Tiny fat-containing umbilical hernia. Linear densities in groundglass densities within the bilateral lower lobes consistent with atelectasis. There are 2, 5 mm subpleural nodule seen within the left lower lobe and lingula on images 64 and 66 of 516. These are new from the prior study. Hepatic steatosis. Cholelithiasis. No gallbladder wall thickening. The unenhanced spleen, pancreas, and adrenal glands are unremarkable. No renal stones or hydronephrosis. No retroperitoneal lymphadenopathy. Mild bladder wall thickening is likely due to underdistention. The prostate gland is mildly enlarged. IMPRESSION: 1. Acute proximal sigmoid diverticulitis. No perforation or abscess at this time. 2. No renal stones or hydronephrosis. 3. Cholelithiasis. 4. Hepatic steatosis. 5. There are two, 5 mm indeterminate pulmonary nodules within the left lung base. Please refer to the chart below for recommended follow-up. Please refer to below summary of Fleischner criteria recommendations for follow-up of incidental CT nodules (Donna Gillespie, Guidelines for management of small pulmonary nodules detected on CT scans: A statement from the Fleischner Society, Radiology 237: [phone].) SOLID NODULES Solitary nodule size: <6 mm * Low risk patients: no follow-up needed * high risk patients: optional CT at 12 months Solitary nodule size: 6-8 mm * Low risk patients: follow-up at 6-12 months, then consider further follow-up at 18-24 months * high risk patients: initial follow-up CT at 6-12 months and then at 18-24 months if no change Solitary nodule size: >8 mm * either low or high risk patients - consider follow-up CT at 3 months, and/or CT-PET, and/or biopsy Multiple nodules size: <6 mm * Low risk patients: no routine follow-up * high risk patients: optional CT at 12 months Multiple nodules size: 6-8 mm * Low risk patients: follow-up at 3-6 months, then consider further follow-up at 18-24 months * high risk patients: follow-up at 3-6 months, then at 18-24 months if no change Multiple nodules size: >8 mm * Low risk patients: follow-up at 3-6 months, then consider further follow-up at 18-24 months * high risk patients: follow-up at 3-6 months, then at 18-24 months if no change Note: newly detected indeterminate nodule in persons 35 years of age or older. * Low risk patients: minimal or absent history of smoking and/or other known risk factors * high risk patients: history of smoking or of other known risk factors (e.g. first degree relative with lung cancer, or exposure to asbestos, radon, uranium) * if a nodule up to 8 mm is partly solid or is ground glass further follow-up is required after 24 months to exclude possible slow growing adenocarcinoma (WILMER) SUBSOLID NODULES Solitary pure ground-glass nodule * nodule size <6 mm - no CT follow-up required * nodule size >=6 mm - follow-up CT at 6-12 months, then every 2 years until 5 years Solitary part-solid nodule * nodule size <6 mm - no CT follow-up required * nodule size >=6 mm - follow-up CT at 3-6 months. If unchanged, and solid component remains <6 mm, then annual follow-up for 5 years Multiple subsolid nodules * nodule size <6 mm - follow-up CT at 3-6 months, consider further follow-up at 2 and 4 years if stable * nodule size >=6 mm - follow-up CT at 3-6 months, subsequent management based on the most suspicious nodule(s) Electronically signed by: Feltno Benito M.D. 07/20/2016 2:53 PM Dictated Date/Time: 07/20/2016 2:46 PM
[2016-07-20] MEDS ORDERED: METRONIDAZOLE 250 MG TAB PO STA (14:55)
[2016-07-20] MEDS ORDERED: CIPROFLOXACIN 500 MG TAB PO STA (14:55)
[2016-07-20 15:09] LABS: URINE APPEARANCE CLEAR (CLEAR); URINE BILIRUBIN NEG (NEG); URINE COLOR YELLOW; URINE NITRITE NEG (NEG); URINE PH 5.5 (4.5-7.5); URINE SPECIFIC GRAVITY 1.019 (1.000-1.030); UROBILINOGEN NEG (NEG)
[2016-07-20] MEDS ORDERED: METR-162 PO (15:15)
[2016-07-20] MEDS ORDERED: CIPR-255 PO (15:15)
[2016-07-20] MEDS ORDERED: OXYC1TAB3 PO (15:15)
[2016-07-20 15:23] LABS: MANUAL MICROSCOPIC REQUIRED? NO; REVIEW REQ? NO
[2016-07-20 15:28] VITALS: BP 112/55; PULSE 58; O2SAT 96
== END 2016-07-20 15:41 | disposition home or self-care (01) ==
LOC: C.EDB 13:53 → C.EDC 15:41
DX: K57.92 Diverticulitis of intestine, part unspecified, without perforation or abscess without bleeding (principal); Z87.442 Personal history of urinary calculi; Z80.9 Family history of malignant neoplasm, unspecified

== ENCOUNTER → 2017-03-16 | Outpatient (CLI) | payer OTHER ==
[~2017-03-16] MED LIST changes: -ALBUAER19 INH; +CIPR-255 PO; -LEVO1TAB35 PO; -ONDA4TAB10 SL; -OXYC1TAB3 PO; +VNTHFA/IN INH
[2017-03-16 11:15] LABS: INFLUENZA A PCR Neg for Influ A (NEG); INFLUENZA B PCR Neg for Influ B (NEG)
== END | disposition home or self-care (01) ==
LOC: C.LAB1850 08:10
PROVIDERS: ATTEND Physician Assistant
DX: R05 Cough (principal)

== ENCOUNTER 2022-09-28 08:06 | Inpatient (IN) ==
--- NOTE | 2022-09-28 08:42 | Emergency Department Note ---
Impression & Plan Pneumothorax, left, Left rib fracture, Pulmonary edema ED Provider Note NAME: ZHOU FERRER AGE: 61 SEX: M ARRIVES VIA: Walk-In INFORMANT: Patient ED PROVIDER(S): Charles Grewal MD CHIEF COMPLAINT: Chest pain, shortness of breath, pneumothorax. PLAN: Disposition: Admit MEDICAL DECISION MAKING: The patient is a pleasant 61-year-old gentleman with a past medical history of GERD, upper airway cough syndrome per records, allergic rhinitis who presents to the emergency department via walk-in and accompanied by his family for evaluation of worsening shortness of breath in setting of being seen in this emergency department on 09/23 for chest wall pain and shortness of breath after having a fall when he slipped on steps taking his dog out. The patient was no luisa to have nondisplaced left posterior seventh and eighth rib fractures with a small left pneumothorax which was further characterized on CT imaging and following consultation with pulmonology given stability on a repeat chest x-ray several hours later it was determined that the patient could follow-up outpatient. Patient reports continuing pain since he was in the emergency department and has been taking his prescribed oxycodone. He does acknowledge he has had several severe coughing fits since then. Patient denies any history of smoking but does admit that his used to smoke regularly in their home and so he estimates he may have had approximately 15 years of secondhand smoke expos ure. The patient does not take anticoagulation nor daily aspirin. On my evaluation the patient is uncomfortable but no acute distress, afebrile with heart rate in the 80s and blood pressure elevated 160/100 in setting of his pain with O2 saturation 95 and greater on room air. On my evaluation the patient has no left-sided breath sounds. Chest x-ray demonstrates complete left lung collapse with radiographic suggestion of tension however clinically the patient does not exhibit signs of tension pneumothorax. The patient was placed in the critical care bay where saline lock and labs were obtained and the patient consented for thoracostomy. Given the patient's prior pneumothorax several days ago was very small we did discuss options for chest tube versus pigtail and given it is suspected that a pigtail would be effective and better tolerated we agreed to proceed with this. EKG without overt acute ischemia. WBC, H/H and platelets within normal limits. INR within normal limits. Chem istry without metabolic acidosis. Electrolytes without significant abnormality. Tolerating 1.1, nonspecific with LFTs otherwise normal. Initial pigtail was placed but unsuccessful, suspected have been displaced upon wire placement. Repeat pigtail was placed successfully per procedure note. Case was discussed with pulmonology on-call, Dr. Cardona, who evaluated the patient at the bedside. Appreciate consultation and recommendations. CT of the chest was performed subsequently and demonstrates evidence of reexpansion pulmonary edema but otherwise resolution of pneumothorax with pigtail appropri ately placed. Small left pleural effusion. Groundglass opacities at bilateral lung bases left greater than right likely atelectasis, similarly described on prior CT. Given there is no significant change in the patient's rib fractures with only minimal new displacement of 2-3 mm of ribs 7 and 8 upon discussion with radiology, Dr. Mcgowan, patient can be admitted to our facility for emergent management as he is doing well status post expansion. Case was discussed with Dr. Cardoza, [facility] hospitalist, who will evaluate the patient for admission. Triage Nursing notes reviewed and agree them. Prior/outside medical records reviewed Vital Signs: reviewed Differential diagnosis: Cardiac ischemia, aortic dissection, pulmonary embolism, pneumothorax, pneumonia, pericarditis, myocarditis, esophageal rupture, GERD, cholecystitis, pancreatitis, musculoskeletal, as well as other pathologies. ER treatment provided: See below. Diagnostics interpreted by me: ECG: Normal sinus rhythm, 85 bpm, no ectopy, nonspecific ST and T wave normality, no overt ST elevation or depression, QTc 440, QRS 86 Cardiac Monitoring: An order for continuous cardiac monitoring was placed and demonstrated Normal sinus rhythm, 85 bpm, no ectopy. Laboratory studies: See below Imaging studies: See below Consultation(s): Dr. Cardona, [place] pulmonology. Case was discussed with Dr. Cardoza, [facility] hospitalist, who will evaluate the patient for admission. HPI: The patient is a pleasant 61-year-old gentleman with a past medical history of GERD, upper airway cough syndrome per records, allergic rhinitis who presents to the emergency department via walk-in and accompanied by his family for evaluation of worsening shortness of breath in setting of being seen in this emergency department on 09/23 for chest wall pain and shortness of breath after having a fall when he slipped on steps taking his dog out. The patient was noted to have nondisplaced left posterior seventh and eighth rib fractures with a small left pneumothorax which was further characterized on CT imaging and following consultation with pulmonology given stability on a repeat chest x-ray several hours later it was determined that the patient could follow-up out patient. Patient reports continuing pain since he was in the emergency department and has been taking his prescribed oxycodone. He does acknowledge he has had several severe coughing fits since then. Patient denies any history of smoking but does admit that his used to smoke regularly in their home and so he estimates he may have had approximately 15 years of secondhand smoke exposure. The patient does not take anticoagulation nor daily aspirin. ROS: See above HPI for pertinent positives & negatives. A total of 10 systems reviewed and were otherwise negative. VITALS:See Below PHYSICAL EXAMINATION: GENERAL: Awake, alert, uncomfortable-appearing, in no distress HENT: Normocephalic, atraumatic. Oropharynx with dry mucous membranes and otherwise unremarkable. EYES: Normal conjunctiva. Sclera non-icteric. NECK: Supple. No nuchal rigidity. FROM. No JVD. RESPIRATORY: Absent breath sounds of the left lung [place]. Dyspneic but no acute distress without significant work of breathing. CARDIAC: Regular rate, normal rhythm. Extremities warm and well perfused. Pulses equal. ABDOMEN: Soft, non-distended. No tenderness to palpation. No rebound or guarding. No masses. RECTAL: Deferred. MUSCULOSKELETAL: Chest examination reveals no tenderness. The back is symmetrical on inspection without obvious abnormality. There is no CVA tenderness to palpation. No joint edema. LOWER EXTREMITIES: Calves are equal size bilaterally and non-tender. No edema. No discoloration. NEURO: Normal sensorium. No sensory or motor deficits noted. SKIN: No rash or jaundice noted. ED COURSE: Procedures: Tube thoracostomy (pigtail) Indication: Pneumothorax Catheter type: Pigtail catheter, 8.5f/15cm Location: Left mid-axillary line, 4th intercostal space. Medications, Imaging and lab results reviewed. Verbal and written consent was obtained after the risks and benefits were explained. At this time, the risks of the procedure are less than the risks of NOT performing the procedure. The patient was placed in the supine position with slight right lateral decubitus orientation and the skin was prepped in the standard fashion with chlorhexidine and sterile drapes applied. The proper landmarks were identified, anesthetized with 1% lidocaine without epinephrine, and the needle was inserted through the skin in the standard fashion with contact on rib surface then over rib into intercostal space. The needle was carefully advanced and air return confirmed in syringe. Unfortunately is suspected that the needle was displaced from the pleural cavity upon insertion of the guidewire and so upon subsequent chest x-ray was noted to be external to the pleural cavity. The patient did agree with repeat placement. The patient was prepared in similar fashion as above and placed in the supine position with slight right lateral decubitus orientation and the skin was prepped in the standard fashion with chlorhexidine and sterile drapes applied. The proper landmarks were identified, anesthetized with 1% lidocaine without epinephrine, and the needle was inserted through the skin in the standard fashion with contact on rib surface then over rib into intercostal space. The needle was carefully advanced and air return confirmed in syringe. The guidewire was placed uneventfully. Tract was dilated in standard fashion and pigtail catheter advanced with air return confirming appropriate position. It was sutured into position. Initially placed to low wall suction which the patient tolerated well. Upon placing Pleur-evac to low wall suction the patient began to have a coughing fit and small amount of blood entered the pigtail catheter consistent with suspected reexpansion pulmonary edema. Pleur-evac subsequently placed to waterseal and subsequently irrigated with sterile saline and cleared and subsequently functioning appropriately. The patient tolerated the procedure well and there were no complications. Post procedure x-ray demonstrated lung reexpansion. Critical Care: I have personally spent greater than 65 minutes of critical care time in the direct management of this patient. This includes bedside care, interpretation of diagnostic studies, and testing, discussion with consultants, patient, and family members, and other required patient management activities. This 65 minutes is in excess of all separately billable procedures. Charles Grewal MD Past Med/Surg History Medical History (Updated 09/28/22 @ 18:51 by Charles Grewal MD) Aortic root enlargement COPD (chronic obstructive pulmonary disease) GERD without esophagitis Pneumonia Sciatica Severe obesity (BMI 35.0-35.9 with comorbidity) Syncope Surgical History No pertinent past surgical history Family History Sister Breast cancer Other No pertinent family history in first degree relatives Social History (Updated 09/28/22 @ 14:57 by Kaitlin Cardoza, DO) Smoking Status: Never smoker Tobacco Type: Cigars Hx Alcohol Use: No Hx Substance Use: No Preferred Language: Yakut Communication Ability: Effective First Breaker Feeder Required: No Beliefs That Will Affect Care: None Current Living Situation: Spouse and Family Other Information That Helps Us Care for You: No Feels Safe at Home: Yes Safety Concerns: Feels Safe At This Time Assistive Devices: None Allergies Allergies Allergy/AdvReac Type Severity Reaction Status Date / Time No Known Allergies Allergy Verified 02/19/20 14:29 Home Meds Home Medications Medication Instructions Recorded Confirmed albuterol sulfate 90 mcg/actuation 2 puffs inhalation Q6H PRN 12/26/18 09/28/22 aerosol inhaler (Ventolin HFA) Shortness Of Breath naproxen sodium 220 mg tablet 440 mg PO Q12H PRN Pain 03/26/19 09/28/22 (Aleve) simethicone 125 mg chewable tablet 125 mg PO BID PRN Gas 03/26/19 09/28/22 (Gas-X Extra Strength) coffee 100 mg theanine 200 mg 1 cap PO DAILY 02/19/20 09/28/22 superoxide dismutase 10 mg capsule (Neuriva De-Stress) atorvastatin 20 mg tablet 20 mg PO DAILY 09/23/22 09/28/22 esomeprazole magnesium 20 mg 20 mg PO DAILY 09/23/22 09/28/22 capsule,delayed release (Nexium) fluticasone furoate 100 1 inh inhalation QAM 09/23/22 09/28/22 mcg-vilanterol 25 mcg/dose inhalation powder (Breo Ellipta) fluticasone propionate 50 1 spray intranasal DAILY PRN Other 09/23/22 09/28/22 mcg/actuation nasal spray,suspension (Flonase Allergy Relief) tamsulosin 0.4 mg capsule 0.4 mg PO DAILY 09/28/22 09/28/22 Previous Rx's Medication Instructions Recorded chlorpheniramine 4 1 tab PO Q8 PRN allergy symptoms 02/19/20 mg-phenylephrine 10 mg-DM 10 mg and cough #60 tabs tablet Results & Data (ED) Vital Signs Vital Signs - 24 hr 09/28/22 08:21 09/28/22 08:34 09/28/22 08:34 Temperature 36.8 C Temperature Source Oral Pulse Rate 83 87 Pulse Rate [Right Finger] Pulse Rate from SpO2 Sensor Pulse Rhythm Respiratory Rate 26 H Respiratory Effort / Characteristics Respiratory Depth Respiratory Pattern Blood Pressure 189/112 H Blood Pressure [Right Arm] Blood Pressure Mean 137 Blood Pressure Mean [Right Arm] Blood Pressure Position Sitting Pulse Oximetry 90 96 Oxygen Delivery Method Room Air Nasal Cannula Oxygen Flow Rate 2 Sepsis Recent Fever Within 48 Hours No Sepsis New/Unexplained Change in Mental Status No Sepsis Action Taken by Nursing No Action Required 09/28/22 08:41 09/28/22 09:13 09/28/22 09:13 Temperature Temperature Source Pulse Rate 83 Pulse Rate [Right Finger] Pulse Rate from SpO2 Sensor Pulse Rhythm Regular Respiratory Rate 20 Respiratory Effort / Characteristics Non-Labored Spontaneous Respiratory Depth Normal Respiratory Pattern Regular Blood Pressure Blood Pressure [Right Arm] Blood Pressure Mean Blood Pressure Mean [Right Arm] Blood Pressure Position Pulse Oximetry 96 96 Oxygen Delivery Method Room Air Nasal Cannula Nasal Cannula Oxygen Flow Rate 2 2 Sepsis Recent Fever Within 48 Hours Sepsis New/Unexplained Change in Mental Status Sepsis Action Taken by Nursing 09/28/22 09:44 09/28/22 09:58 09/28/22 10:09 Temperature Temperature Source Pulse Rate Pulse Rate [Right Finger] 72 78 76 Pulse Rate from SpO2 Sensor Pulse Rhythm Respiratory Rate 20 24 20 Respiratory Effort / Characteristics Non-Labored Non-Labored Non-Labored Respiratory Depth Normal Normal Normal Respiratory Pattern Blood Pressure Blood Pressure [Right Arm] 168/111 H 173/110 H 172/104 H Blood Pressure Mean Blood Pressure Mean [Right Arm] 130 131 126 Blood Pressure Position Pulse Oximetry 100 99 100 Oxygen Delivery Method Non-rebreather Non-rebreather Non-rebreather Oxygen Flow Rate 15 12 12 Sepsis Recent Fever Within 48 Hours Sepsis New/Unexplained Change in Mental Status Sepsis Action Taken by Nursing 09/28/22 10:21 09/28/22 10:31 09/28/22 11:02 Temperature Temperature Source Pulse Rate Pulse Rate [Right Finger] 78 78 Pulse Rate from SpO2 Sensor Pulse Rhythm Respiratory Rate 28 H 19 Respiratory Effort / Characteristics Non-Labored Non-Labored Respiratory Depth Normal Normal Respiratory Pattern Blood Pressure Blood Pressure [Right Arm] 178/101 H 175/115 H Blood Pressure Mean Blood Pressure Mean [Right Arm] 126 135 Blood Pressure Position Pulse Oximetry 97 99 94 Oxygen Delivery Method Non-rebreather Non-rebreather Nasal Cannula Oxygen Flow Rate 12 12 4 Sepsis Recent Fever Within 48 Hours Sepsis New/Unexplained Change in Mental Status Sepsis Action Taken by Nursing 09/28/22 12:36 09/28/22 12:28 09/28/22 14:29 Temperature Temperature Source Pulse Rate 69 Pulse Rate [Right Finger] 70 70 Pulse Rate from SpO2 Sensor Pulse Rhythm Respiratory Rate 18 18 Respiratory Effort / Characteristics Respiratory Depth Normal Respiratory Pattern Blood Pressure Blood Pressure [Right Arm] 144/93 H 148/90 H Blood Pressure Mean Blood Pressure Mean [Right Arm] 110 109 Blood Pressure Position Pulse Oximetry 93 92 Oxygen Delivery Method Nasal Cannula Nasal Cannula Oxygen Flow Rate 3 2 Sepsis Recent Fever Within 48 Hours Sepsis New/Unexplained Change in Mental Status Sepsis Action Taken by Nursing 09/28/22 10:30 09/28/22 10:30 09/28/22 10:40 Temperature Temperature Source Pulse Rate 72 73 Pulse Rate [Right Finger] Pulse Rate from SpO2 Sensor 75 73 Pulse Rhythm Respiratory Rate 15 17 Respiratory Effort / Characteristics Respiratory Depth Respiratory Pattern Blood Pressure 175/115 H Blood Pressure [Right Arm] Blood Pressure Mean 135 Blood Pressure Mean [Right Arm] Blood Pressure Position Pulse Oximetry 100 100 Oxygen Delivery Method Oxygen Flow Rate Sepsis Recent Fever Within 48 Hours Sepsis New/Unexplained Change in Mental Status Sepsis Action Taken by Nursing 09/28/22 10:46 09/28/22 10:46 09/28/22 10:50 Temperature Temperature Source Pulse Rate 88 85 Pulse Rate [Right Finger] Pulse Rate from SpO2 Sensor 87 85 Pulse Rhythm Respiratory Rate 28 H 21 Respiratory Effort / Characteristics Respiratory Depth Respiratory Pattern Blood Pressure 164/118 H Blood Pressure [Right Arm] Blood Pressure Mean 133 Blood Pressure Mean [Right Arm] Blood Pressure Position Pulse Oximetry 99 98 Oxygen Delivery Method Oxygen Flow Rate Sepsis Recent Fever Within 48 Hours Sepsis New/Unexplained Change in Mental Status Sepsis Action Taken by Nursing 09/28/22 11:00 09/28/22 11:00 09/28/22 11:10 Temperature Temperature Source Pulse Rate 86 88 Pulse Rate [Right Finger] Pulse Rate from SpO2 Sensor 84 91 H Pulse Rhythm Respiratory Rate 18 22 Respiratory Effort / Characteristics Respiratory Depth Respiratory Pattern Blood Pressure 157/108 H Blood Pressure [Right Arm] Blood Pressure Mean 124 Blood Pressure Mean [Right Arm] Blood Pressure Position Pulse Oximetry 93 94 Oxygen Delivery Method Oxygen Flow Rate Sepsis Recent Fever Within 48 Hours Sepsis New/Unexplained Change in Mental Status Sepsis Action Taken by Nursing 09/28/22 11:20 09/28/22 11:30 09/28/22 11:30 Temperature Temperature Source Pulse Rate 86 89 Pulse Rate [Right Finger] Pulse Rate from SpO2 Sensor 90 87 Pulse Rhythm Respiratory Rate 16 21 Respiratory Effort / Characteristics Respiratory Depth Respiratory Pattern Blood Pressure 139/104 H Blood Pressure [Right Arm] Blood Pressure Mean 115 Blood Pressure Mean [Right Arm] Blood Pressure Position Pulse Oximetry 93 92 Oxygen Delivery Method Oxygen Flow Rate Sepsis Recent Fever Within 48 Hours Sepsis New/Unexplained Change in Mental Status Sepsis Action Taken by Nursing 09/28/22 11:40 09/28/22 11:50 09/28/22 12:00 Temperature Temperature Source Pulse Rate 76 73 Pulse Rate [Right Finger] Pulse Rate from SpO2 Sensor 79 76 Pulse Rhythm Respiratory Rate 26 H 18 Respiratory Effort / Characteristics Respiratory Depth Respiratory Pattern Blood Pressure 127/97 Blood Pressure [Right Arm] Blood Pressure Mean 107 Blood Pressure Mean [Right Arm] Blood Pressure Position Pulse Oximetry 96 96 Oxygen Delivery Method Oxygen Flow Rate Sepsis Recent Fever Within 48 Hours Sepsis New/Unexplained Change in Mental Status Sepsis Action Taken by Nursing 09/28/22 12:00 09/28/22 12:10 09/28/22 12:20 Temperature Temperature Source Pulse Rate 71 72 79 Pulse Rate [Right Finger] Pulse Rate from SpO2 Sensor 77 70 82 Pulse Rhythm Respiratory Rate 18 23 26 H Respiratory Effort / Characteristics Respiratory Depth Respiratory Pattern Blood Pressure Blood Pressure [Right Arm] Blood Pressure Mean Blood Pressure Mean [Right Arm] Blood Pressure Position Pulse Oximetry 94 96 90 Oxygen Delivery Method Oxygen Flow Rate Sepsis Recent Fever Within 48 Hours Sepsis New/Unexplained Change in Mental Status Sepsis Action Taken by Nursing 09/28/22 12:30 09/28/22 12:30 09/28/22 12:40 Temperature Temperature Source Pulse Rate 76 Pulse Rate [Right Finger] Pulse Rate from SpO2 Sensor 72 73 Pulse Rhythm Respiratory Rate 22 20 Respiratory Effort / Characteristics Respiratory Depth Respiratory Pattern Blood Pressure 144/93 H Blood Pressure [Right Arm] Blood Pressure Mean 110 Blood Pressure Mean [Right Arm] Blood Pressure Position Pulse Oximetry 93 93 Oxygen Delivery Method Oxygen Flow Rate Sepsis Recent Fever Within 48 Hours Sepsis New/Unexplained Change in Mental Status Sepsis Action Taken by Nursing 09/28/22 12:50 09/28/22 13:13 09/28/22 13:20 Temperature Temperature Source Pulse Rate 70 68 73 Pulse Rate [Right Finger] Pulse Rate from SpO2 Sensor 69 68 72 Pulse Rhythm Respiratory Rate 14 21 19 Respiratory Effort / Characteristics Respiratory Depth Respiratory Pattern Blood Pressure Blood Pressure [Right Arm] Blood Pressure Mean Blood Pressure Mean [Right Arm] Blood Pressure Position Pulse Oximetry 93 94 94 Oxygen Delivery Method Oxygen Flow Rate Sepsis Recent Fever Within 48 Hours Sepsis New/Unexplained Change in Mental Status Sepsis Action Taken by Nursing 09/28/22 13:25 09/28/22 13:25 09/28/22 13:30 Temperature Temperature Source Pulse Rate 71 70 Pulse Rate [Right Finger] Pulse Rate from SpO2 Sensor 71 69 Pulse Rhythm Respiratory Rate 20 21 Respiratory Effort / Characteristics Respiratory Depth Respiratory Pattern Blood Pressure 152/99 H Blood Pressure [Right Arm] Blood Pressure Mean 116 Blood Pressure Mean [Right Arm] Blood Pressure Position Pulse Oximetry 91 94 Oxygen Delivery Method Oxygen Flow Rate Sepsis Recent Fever Within 48 Hours Sepsis New/Unexplained Change in Mental Status Sepsis Action Taken by Nursing 09/28/22 13:40 09/28/22 13:50 09/28/22 14:00 Temperature Temperature Source Pulse Rate 68 70 Pulse Rate [Right Finger] Pulse Rate from SpO2 Sensor 69 68 Pulse Rhythm Respiratory Rate 21 20 Respiratory Effort / Characteristics Respiratory Depth Respiratory Pattern Blood Pressure 148/90 H Blood Pressure [Right Arm] Blood Pressure Mean 109 Blood Pressure Mean [Right Arm] Blood Pressure Position Pulse Oximetry 94 93 Oxygen Delivery Method Oxygen Flow Rate Sepsis Recent Fever Within 48 Hours Sepsis New/Unexplained Change in Mental Status Sepsis Action Taken by Nursing 09/28/22 14:00 09/28/22 14:10 09/28/22 14:20 Temperature Temperature Source Pulse Rate 72 68 63 Pulse Rate [Right Finger] Pulse Rate from SpO2 Sensor 71 65 65 Pulse Rhythm Respiratory Rate 18 23 15 Respiratory Effort / Characteristics Respiratory Depth Respiratory Pattern Blood Pressure Blood Pressure [Right Arm] Blood Pressure Mean Blood Pressure Mean [Right Arm] Blood Pressure Position Pulse Oximetry 93 93 92 Oxygen Delivery Method Oxygen Flow Rate Sepsis Recent Fever Within 48 Hours Sepsis New/Unexplained Change in Mental Status Sepsis Action Taken by Nursing 09/28/22 14:30 09/28/22 14:40 09/28/22 14:50 Temperature Temperature Source Pulse Rate 67 70 66 Pulse Rate [Right Finger] Pulse Rate from SpO2 Sensor 69 71 66 Pulse Rhythm Respiratory Rate 15 21 17 Respiratory Effort / Characteristics Respiratory Depth Respiratory Pattern Blood Pressure Blood Pressure [Right Arm] Blood Pressure Mean Blood Pressure Mean [Right Arm] Blood Pressure Position Pulse Oximetry 92 92 93 Oxygen Delivery Method Oxygen Flow Rate Sepsis Recent Fever Within 48 Hours Sepsis New/Unexplained Change in Mental Status Sepsis Action Taken by Nursing 09/28/22 15:00 09/28/22 15:00 Temperature Temperature Source Pulse Rate 66 Pulse Rate [Right Finger] Pulse Rate from SpO2 Sensor 68 Pulse Rhythm Respiratory Rate 17 Respiratory Effort / Characteristics Respiratory Depth Respiratory Pattern Blood Pressure 123/85 Blood Pressure [Right Arm] Blood Pressure Mean 97 Blood Pressure Mean [Right Arm] Blood Pressure Position Pulse Oximetry 92 Oxygen Delivery Method Oxygen Flow Rate Sepsis Recent Fever Within 48 Hours Sepsis New/Unexplained Change in Mental Status Sepsis Action Taken by Nursing Laboratory Data 09/28/22 08:30 09/28/22 08:30 Lab Results 09/28/22 09/28/22 09/28/22 Range/Units 08:30 08:30 08:30 WBC 6.98 (4.8-10.8) K/ul RBC 5.25 (4.70-6.10) M/uL Hgb 16.4 (14.0-18.0) g/dl Hct 46.8 (42.0-52.0) % MCV 89.1 (80.0-100.0) fL MCH 31.2 (25.0-34.0) pg MCHC 35.0 (32.0-36.0) g/dL RDW Std Deviation 41.5 (36.4-46.3) fL RDW Coeff of Greg 12.8 (11.5-14.5) % Plt Count 335 (130-400) K/uL MPV 9.0 L (9.4-12.4) fL Immature Gran % (Auto) 0.4 % Neut % (Auto) 78.3 % Lymph % (Auto) 9.7 % [place] % (Auto) 8.9 % Eos % (Auto) 2.4 % Baso % (Auto) 0.3 % Neut # (Auto) 5.46 (1.40-6.50) K/uL Lymph # (Auto) 0.68 L (1.2-3.4) K/uL [place] # (Auto) 0.62 H (0.11-0.59) K/uL Eos # (Auto) 0.17 (0-0.50) K/uL Baso # (Auto) 0.02 (0-0.2) K/uL Immature Gran # (Auto) 0.03 (0.01-0.20) K/uL PT 11.1 (9.0-12.0) Seconds INR 1.0 (0.9-1.1) Sodium 137 (136-145) mmol/L Potassium 4.2 (3.5-5.1) mmol/L Chloride 103 (98-107) mmol/L Carbon Dioxide 27 (21-32) mmol/L Anion Gap 7 (3-11) BUN 8 (6-23) mg/dl Creatinine 0.83 (0.6-1.4) mg/dl Est Cr Clr Drug Dosing 106.7 ml/min Est GFR ( Amer) 110.1 ml/min Est GFR (Non-Af Amer) 95.0 ml/min BUN/Creatinine Ratio 9.6 L (10-20) Glucose 106 H (70-99(Fasting)) mg/dl Calcium 10.1 (8.6-10.3) mg/dl Total Bilirubin 1.1 H (0.2-1.0) mg/dl AST 34 (13-39) U/L ALT 48 (7-52) U/L Alkaline Phosphatase 95 (34-104) U/L Total Protein 8.2 (6.0-8.3) gm/dl Albumin 4.8 (3.4-5.0) gm/dl Globulin 3.4 (2.5-4.0) gm/dl Albumin/Globulin Ratio 1.4 (0.9-2) Administered Medications Lactated Ringer's (Lr) 1,000 mls @ 125 mls/hr IV .Q8H ALF Stop: 10/28/22 09:14 Last Admin: 09/28/22 09:25 Dose: 125 mls/hr Documented By: JEFF Discontinued Medications Acetaminophen (Ofirmev) 1,000 mg in 100 mls @ 400 mls/hr IV NOW STA Stop: 09/28/22 09:24 Last Infusion: 09/28/22 11:02 Dose: 0 mls/hr Documented By: Admin: 09/28/22 09:24 Dose: 400 mls/hr Documented By: JEFF Ioversol (Optiray 320 100ml) 93 ml IV ONCE ONE Stop: 09/28/22 13:08 Last Admin: 09/28/22 13:08 Dose: 93 ml Documented By: MARISOL Lidocaine HCl (Xylocaine 1%/Sod Bicarb 20 Ml Vial) Confirm Administered Dose 1 ml INFIL .STK-MED ONE Stop: 09/28/22 10:01 Last Admin: 09/28/22 10:03 Dose: 1 ml Documented By: KEKE Morphine Sulfate (Morphine Sulfate 4 Mg/Ml 1 Ml Carp\Vial) 4 mg IV NOW STA Stop: 09/28/22 09:11 Last Admin: 09/28/22 09:24 Dose: 4 mg Documented By: JEFF Morphine Sulfate (Morphine Sulfate 4 Mg/Ml 1 Ml Carp\Vial) 4 mg IV NOW STA Stop: 09/28/22 13:14 Last Admin: 09/28/22 13:16 Dose: 4 mg Documented By: [facility] [place] [facility] [place] Data Radiologist's Impression: Chest X-Ray 09/28/22 08:43 XR chest 1V portable CLINICAL HISTORY: eval left PTX TECHNIQUE: Single frontal radiograph of the chest was obtained. Comparison: Comparison is made to chest radiograph 09/23/2022 FINDINGS: No lines and tubes are seen. The cardiomediastinal silhouette is normal. There is a large left pneumothorax with complete collapse of the left lung and minimal midline shift. No evidence of pleural effusion or pneumothorax. Multiple left rib fractures are seen which appear slightly more displaced. IMPRESSION: 1. Large left pneumothorax without a significant component of tension pneumothorax. 2. Multiple left rib fractures which appear somewhat more displaced on today's exam. ACT 112: Negative or not required by law. Electronically signed by: Addi Mcgowan M.D. 09/28/2022 9:35 AM Chest X-Ray 09/28/22 11:00 XR chest 1V portable CLINICAL HISTORY: ptx TECHNIQUE: Single frontal radiograph of the chest was obtained. Comparison: Comparison is made to chest radiograph 09/28/2022 FINDINGS: There is a chest tube in the soft tissues of the left lateral chest, the pigtail lies outside the chest cavity. The lungs are clear. Large left pneumothorax is again seen. IMPRESSION: Large left pneumothorax remains. The chest tube appears to terminate outside the thoracic cavity. ACT 112: Negative or not required by law. Electronically signed by: Addi Mcgowan M.D. 09/28/2022 11:17 AM Chest X-Ray 09/28/22 12:32 XR chest 1V portable HISTORY: 61 years-old Male Pneumo follow-up study in a patient with a left- sided pleural catheter COMPARISON: 09/28/2022 TECHNIQUE: AP view of the chest FINDINGS: Cardiac silhouette is enlarged. Resolution of the midline shift. Pulmonary vascular congestion. Mild bibasilar atelectasis. Trace left pleural effusion. There is improved aeration of the left lung status post placement of a pleural pigtail catheter distal tip projected in the left midlung. There is improved aeration of left lung with only a trace residual left-sided pneumothorax or pleural separation measuring 6 mm laterally. IMPRESSION: Improved aeration of the left lung status post placement of a pigtail pleural catheter with trace residual pneumothorax. ACT 112: Negative or not required by law. The above report was generated using voice recognition software. It may contain grammatical, syntax or spelling errors. Electronically signed by: Bijan Peñaloza M.D. 09/28/2022 12:[address] 09/28/22 12:44 CT chest diagnostic w con CLINICAL HISTORY: eval rib fracture and PTX TECHNIQUE: Multidetector row helical CT of the chest was performed with intrav enous contrast. Coronal and sagittal reformations were obtained. Automated dose lowering techniques and/or adjustment according to patient size were utilized for this exam. CT DOSE: 856.94 mGy.cm Comparison: Comparison is made to chest 09/23/2022 FINDINGS: Lungs and pleura: Previously noted pneumothorax has resolved. There is a small left pleural effusion. There are groundglass and airspace opacities in the left lung and left greater than right atelectasis. A chest tube is noted in the left lung base. Heart and pericardium: Heart size is normal. No pericardial effusion. Vessels: Unremarkable. Mediastinum and reginaldo: Unremarkable. Chest wall and lower neck: Chest tube is seen on the left with a small amount of subcutaneous emphysema. Abdomen: Hepatic steatosis is noted. Bones: Fractures of the sixth through eighth ribs are again seen. IMPRESSION: 1. Satisfactory appearance of chest tube with no significant residual pneumothorax small left pleural effusion. Airspace opacities may represent aspiration and/or pneumonia. 2. Redemonstration of left-sided rib fractures. ACT 112: Negative or not required by law. Electronically signed by: Addi Mcgowan M.D. 09/28/2022 1:40 PM Discharge Plan Visit Data Chief Complaint: Shortness of Breath/Dyspnea Stated Complaint: SOB, PARTIALLY CLAPSED LUNG, BROKEN RIBS ED Provider: Charles Grewal Discharge Problem: Pneumothorax, left, Left rib fracture, Pulmonary edema Discharge Instructions Interventions: ED Discharge Assessment Last Done: 09/28/22 16:51
[2022-09-28] MEDS ORDERED: ACETAMINOPHEN 1,000 MG/100 ML VIAL IV STA (09:10)
[2022-09-28] MEDS ORDERED: MoRPHine SULFATE 4 MG/ML 1 ML CARP\\VIAL IV STA ×2 (09:10→13:13)
[2022-09-28] MEDS ORDERED: LACTATED RINGER'S 1,000 ML IV SCH (09:15)
[2022-09-28 09:33] LABS: Basophils # (auto) 0.02 K/uL (0-0.2); Basophils % (auto) 0.3 %; Eosinophils # (auto) 0.17 K/uL (0-0.50); Eosinophils % (auto) 2.4 %; Hematocrit (blood only) 46.8 % (42.0-52.0); Hemoglobin 16.4 g/dl (14.0-18.0); Immature Granulocytes # (auto) 0.03 K/uL (0.01-0.20); Immature Granulocytes % (auto) 0.4 %; Lymphocytes # (auto) 0.68 K/uL (1.2-3.4); Lymphocytes % (auto) 9.7 %; Mean Corpuscular Hemoglobin 31.2 pg (25.0-34.0); Mean Corpuscular Volume 89.1 fL (80.0-100.0); Monocytes # (auto) 0.62 K/uL (0.11-0.59); Monocytes % (auto) 8.9 %; Neutrophils # (auto) 5.46 K/uL (1.40-6.50); Neutrophils % (auto) 78.3 %; Platelet Count 335 K/uL (130-400); RDW Coefficient of Variation 12.8 % (11.5-14.5); RDW Standard Deviation 41.5 fL (36.4-46.3); Red Blood Count 5.25 M/uL (4.70-6.10); White Blood Count 6.98 K/ul (4.8-10.8)
--- NOTE | 2022-09-28 09:36 | XRay Report ---
XR chest 1V portable CLINICAL HISTORY: eval left PTX TECHNIQUE: Single frontal radiograph of the chest was obtained. Comparison: Comparison is made to chest radiograph 09/23/2022 FINDINGS: No lines and tubes are seen. The cardiomediastinal silhouette is normal. There is a large left pneumo thorax with complete collapse of the left lung and minimal midline shift. No evidence of pleural effu yris or pneumothorax. Multiple left rib fractures are seen which appear slightly more displaced. IMPRESSION: 1. Large left pneumothorax without a significant component of tension pneumothorax. 2. Multiple left rib fractures which appear somewhat more displaced on today's exam. ACT 112: Negative or not required by law. Electronically signed by: Addi Mcgowan M.D. 09/28/2022 9:35 AM
[2022-09-28 09:38] LABS: Albumin Globulin Ratio 1.4 (0.9-2); Albumin Level 4.8 gm/dl (3.4-5.0); BUN Creatinine Ratio 9.6 (10-20); Bilirubin,Total 1.1 mg/dl (0.2-1.0); Calcium 10.1 mg/dl (8.6-10.3); Creatinine Clr Calc Pharmacy 106.7 ml/min; Est GFR (African American) 110.1 ml/min; Globulin 3.4 gm/dl (2.5-4.0); Potassium 4.2 mmol/L (3.5-5.1); Total Protein 8.2 gm/dl (6.0-8.3)
[2022-09-28] MEDS ORDERED: XYLOCAINE 1%/SOD BICARB 20 ML VIAL INFIL ONE (10:00)
[2022-09-28 10:03] LABS: Prothrombin Time 11.1 Seconds (9.0-12.0)
--- NOTE | 2022-09-28 11:18 | XRay Report ---
XR chest 1V portable CLINICAL HISTORY: ptx TECHNIQUE: Single frontal radiograph of the chest was obtained. Comparison: Comparison is made to chest radiograph 09/28/2022 FINDINGS: There is a chest tube in the soft tissues of the left lateral chest, the pigtail lies outside the ch est cavity. The lungs are clear. Large left pneumothorax is again seen. IMPRESSION: Large left pneumothorax remains. The chest tube appears to terminate outside the thoracic cavity. ACT 112: Negative or not required by law. Electronically signed by: Addi Mcgowan M.D. 09/28/2022 11:17 AM
--- NOTE | 2022-09-28 12:52 | XRay Report ---
XR chest 1V portable HISTORY: 61 years-old Male Pneumo follow-up study in a patient with a left-sided pleural catheter COMPARISON: 09/28/2022 TECHNIQUE: AP view of the chest FINDINGS: Cardiac silhouette is enlarged. Resolution of the midline shift. Pulmonary vascular congestion. Mild bibasilar atelectasis. Trace left pleural effusion. There is improved aeration of the left lung statu s post placement of a pleural pigtail catheter distal tip projected in the left midlung. There is imp roved aeration of left lung with only a trace residual left-sided pneumothorax or pleural separation measuring 6 mm laterally. IMPRESSION: Improved aeration of the left lung status post placement of a pigtail pleural catheter wi th trace residual pneumothorax. ACT 112: Negative or not required by law. The above report was generated using voice recognition software. It may contain grammatical, syntax o r spelling errors. Electronically signed by: Bijan Peñaloza M.D. 09/28/2022 12:50 PM
[2022-09-28] MEDS ORDERED: OPTIRAY 320 100ml IV ONE (13:07)
--- NOTE | 2022-09-28 13:42 | CT Scan Report ---
CT chest diagnostic w con CLINICAL HISTORY: eval rib fracture and PTX TECHNIQUE: Multidetector row helical CT of the chest was performed with intravenous contrast. Coronal and sagittal reformations were obtained. Automated dose lowering techniques and/or adjustment accord ing to patient size were utilized for this exam. CT DOSE: 856.94 mGy.cm Comparison: Comparison is made to chest 09/23/2022 FINDINGS: Lungs and pleura: Previously noted pneumothorax has resolved. There is a small left pleural effusion. There are groundglass and airspace opacities in the left lung and left greater than right atelectasi s. A chest tube is noted in the left lung base. Heart and pericardium: Heart size is normal. No pericardial effusion. Vessels: Unremarkable. Mediastinum and reginaldo: Unremarkable. Chest wall and lower neck: Chest tube is seen on the left with a small amount of subcutaneous emphyse ma. Abdomen: Hepatic steatosis is noted. Bones: Fractures of the sixth through eighth ribs are again seen. IMPRESSION: 1. Satisfactory appearance of chest tube with no significant residual pneumothorax small left pleura l effusion. Airspace opacities may represent aspiration and/or pneumonia. 2. Redemonstration of left-sided rib fractures. ACT 112: Negative or not required by law. Electronically signed by: Addi Mcgowan M.D. 09/28/2022 1:40 PM
--- NOTE | 2022-09-28 14:23 | Pulmonary Consultation ---
Date of Consultation September 28, 2022 Assessment & Plan (1) Pneumothorax, left: (2) Obesity (BMI 30.0-34.9): (3) Abnormal chest CT: (4) Left rib fracture: Encounter type: initial encounter Fracture type: closed Rib fra cture type: multiple ribs Qualified Code(s): S22.42XA - Multiple fractures of ribs, left side, initial encounter for closed fracture Plan CT chest 09/28/2022 personally reviewed: Bilateral blebs appreciated apical Patchy groundglass opacities appreciated in the left upper as well as left lower lobe Dependent atelectasis of the left lower lobe Small left-sided pleural effusion No significant mediastinal lymphadenopathy -- Traumatic pneumothorax S/p fall with left-sided rib fractures Chest tube placed 09/28/2022 in the ER Pain management for rib fractures -- Reexpansion pulmonary edema Continue to monitor O2 supplementation to keep oxygen saturation 90-92% --Bilateral upper lobe blebs Patient used to smoke 7 to 8 cigars on a yearly basis, quit in 2014 Monitor --Pulmonary nodule 4 mm left lower lobe Unchanged dating back January 2018 In a patient who is low risk given insignificant smoking history No further follow-up needed Plan: Continue with chest tube to waterseal Daily chest x-rays Pain management Void positive pressure ventilation Please note the above document was generated using voice recognition software. It may contain grammatical, syntax or spelling errors.Any formal questions or concerns about the content, text or information contained within the body of this dictation should be directly addressed to the provider for clarification. History of Present Illness History of Present Illness 61-year-old male presented to the hospital with complaints of left-sided chest pain and shortness of breath Past medical history:Seasonal allergies Patient was last seen by me in the office on 02/19/2020 '' In December 2018 he went to a concert in [facility]. During that concert he had a passing out spell with definite loss of consciousness. He states he was not coughing at that time. He believes he was unconscious for 20-30 seconds. Reportedly he was belligerent after this episode. He did have urinary incontinence at that time. He was advised to get an opinion from neurology for that. No more episodes since than.'' Patient had a fall on the where he got a small left-sided pneumothorax. He was in the ER and a chest x-ray was repeated in 4 hours which still shows stability and he was sent home Yesterday he had for soft cough and his shortness of breath got worse. In the ER he was found to have total collapse of the left side of the lung Chest tube was placed in the ED. Pulmonary consulted for further recommendation The time of examination patient was saturating 94-95% on 2 L nasal cannula He was not in any respiratory distress He stated that his breathing is better compared to when he came to the hospital Denied any chest pain. Was little bit of discomfort at the site of the chest tube No fever or chills No night sweats, no unintentional weight loss No headache, no blurry vision Social history: 7 to 8 cigars on a yearly basis quit in 2014,social alcohol, denies any illicit drug use. Works as an chief engineer. No exposure to any chemicals or fumes. Pets: Has a dog at home. No birds or poultry nearby. Allergies: Patient does not take any medication for allergies but does state that he thinks he has allergies now. Usually worse around fall season No personal history of asthma as a child.No family history of asthma. No history of lung cancer in the family.History of breast cancer in 2 sisters Allergies Allergy/AdvReac Type Severity Reaction Status Date / Time No Known Allergies Allergy Verified 02/19/20 14:29 Home Medications Medication Instructions Recorded Confirmed Type albuterol sulfate 90 mcg/actuation 2 puffs inhalation Q6H PRN 12/26/18 09/28/22 History aerosol inhaler (Ventolin HFA) Shortness Of Breath naproxen sodium 220 mg tablet 440 mg PO Q12H PRN Pain 03/26/19 09/28/22 History (Aleve) simethicone 125 mg chewable tablet 125 mg PO BID PRN Gas 03/26/19 09/28/22 History (Gas-X Extra Strength) chlorpheniramine 4 1 tab PO Q8 PRN allergy symptoms 02/19/20 09/28/22 Rx mg-phenylephrine 10 mg-DM 10 mg and cough #60 tabs tablet coffee 100 mg theanine 200 mg 1 cap PO DAILY 02/19/20 09/28/22 History superoxide dismutase 10 mg capsule (Neuriva De-Stress) atorvastatin 20 mg tablet 20 mg PO DAILY 09/23/22 09/28/22 History esomeprazole magnesium 20 mg 20 mg PO DAILY 09/23/22 09/28/22 History capsule,delayed release (Nexium) fluticasone furoate 100 1 inh inhalation QAM 09/23/22 09/28/22 History mcg-vilanterol 25 mcg/dose inhalation powder (Breo Ellipta) fluticasone propionate 50 1 spray intranasal DAILY PRN Other 09/23/22 09/28/22 History mcg/actuation nasal spray,suspension (Flonase Allergy Relief) Patient History Medical History GERD without esophagitis Pneumonia Syncope Surgical History No pertinent past surgical history Family History Sister Breast cancer Other No pertinent family history in first degree relatives Social History Smoking Status: Never smoker Preferred Language: Somali Feels Safe at Home: Yes Review of Systems Review of Systems: All systems reviewed & are unremarkable except as noted in HPI & below Physical Exam Physical Exam: Constitutional: No acute distress HEENT: EOMI, PERRLA Respiratory system: Decreased air entry but laterally, no wheeze, rhonchi, positive crackles bilateral lower lobes CVS: S1-S2 positive, no murmurs or gallops Abdomen: Soft, nontender, nondistended, positive bowel sounds x4, obese Extremities: +2 pulses bilaterally radialis/ dorsalis pedis, no cyanosis, no edema Neuro: Awake alert oriented x3 Psych: Normal mood and affect G/U: No [place] Skin: no rashes, warm and dry Lymphatic: no cervical or axillary lymphadenopathy Results & Data Results & Data Vital Signs (Past 12 Hours) Vital Signs Temp Pulse Pulse Resp BP BP Pulse Ox 09/28/22 12:28 69 09/28/22 12:36 70 18 144/93 H 93 09/28/22 11:02 94 09/28/22 10:31 78 19 175/115 H 99 09/28/22 10:21 78 28 H 178/101 H 97 09/28/22 10:09 76 20 172/104 H 100 09/28/22 09:58 78 24 173/110 H 99 09/28/22 09:44 72 20 168/111 H 100 09/28/22 09:13 83 20 96 09/28/22 09:13 96 09/28/22 08:41 09/28/22 08:34 87 09/28/22 08:34 96 09/28/22 08:21 36.8 C 83 26 H 189/112 H 90 O2 Del Method O2 Flow Rate 09/28/22 12:28 09/28/22 12:36 Nasal Cannula 3 09/28/22 11:02 Nasal Cannula 4 09/28/22 10:31 Non-rebreather 12 09/28/22 10:21 Non-rebreather 12 09/28/22 10:09 Non-rebreather 12 09/28/22 09:58 Non-rebreather 12 09/28/22 09:44 Non-rebreather 15 09/28/22 09:13 Nasal Cannula 2 09/28/22 09:13 Nasal Cannula 2 09/28/22 08:41 Room Air 09/28/22 08:34 09/28/22 08:34 Nasal Cannula 2 09/28/22 08:21 Room Air Laboratory Results 09/28/22 08:30 09/28/22 08:30 PG Care Time/CCT Total # of Minutes Spent Total Time Spent with Patient: Total time spent is greater than 50% in coordination of care (as documented) at patient's floor/unit and/or counseling patient: Coding Level of Care Code 47406 INT INP/OBS CARE 3/75MIN Diagnoses Pneumothorax, left J93.9 Obesity (BMI 30.0-34.9) E66.[address] R93.89 Left rib fracture S22.42XA Encounter type: initial encounter Fracture type: closed Rib fracture type: multiple ribs
--- NOTE | 2022-09-28 15:04 | History & Physical Report ---
Date of Service September 28, 2022 Assessment & Plan (1) Acute respiratory failure with hypoxia: (2) Pneumothorax, left: (3) Left rib fracture: (4) Pulmonary edema: (5) COPD (chronic obstructive pulmonary disease): (6) Pulmonary nodule: (7) Severe obesity (BMI 35.0-35.9 with comorbidity): Plan Acute respiratory failure 2/2 sequelae of recent traumatic rib fracture on the left with subsequent left lung collapse s/p placement of left chest tube with evidence of reexpansion pulmonary edema. Currently in no acute respiratory distress but does have chest wall pain from the rib fractures which has been ongoing. Received Tylenol 1gm IV, morphine 4mg IV x 2 in the ER and appears comfortable for now. Reports the oxycodone did take the edge off but was not totally successful for controlling his pain at home over the last few days. Schedule Tylenol 1gm PO q8h, cont oxy 5-10 mg PO q6hrs as needed, Toradol 15mg IV q6hrs as needed, or morphine 4mg IV q4hrs as needed for helping increase his comfort given the rib fractures. Cont oxygen supplementation, daily chest xrays and chest tube to water seal. Given this occurred 6 days after the original trauma, and that he is now hemodynamically stable, will not transfer him to an increased level care such as a trauma facility. Pulm consultation with continued management of chest tube appreciated. COPD is chronic, stable with no wheezing or evidence of exacerbation. Cont daily Breo per home regimen. Lifestyle modifications recommended for weight loss. DVT proph: Lovenox Full Code Dispo-to PCU I spent a total [id number] coordinating, documenting, and providing care for this patient excluding time spent in the performance of separately billed services DO [facility] Hospitalist History of Present Illness Chief Complaint: shortness of breath Primary Care Provider: Ramón Urbina 61 yo M presented with worsening shortness of breath worsening spontaneously since yesterday around noon. He was found to have a large left pneumothorax without a significant component of tension pneumothorax radiographically and multiple left rib fractures which appear somewhat more displaced on today's exam. He had been seen at [facility] ER on 09/23 after a fall on his steps. At that visit he was seen to have a small left sided pneumothorax. A repeat CXR a few hours later revealed stability and he was sent home. He reports severe coughing fits since that time. A chest tube was placed in the ER with re-expansion of the lung and improvement in oxygenation. He was seen by pulmonary today who recommends continuing chest tube to water seal, pain management and daily chest x-rays. He is currently oxygenating 92% on 2LPM via nasal canula and in no acute respiratory distress. Per outpatient records, he was treated for acute bronchitis and sinuitis on 08/03/22 with Augmentin and a prednisone taper. Spirometry performed on 12/2021 was normal without bronchodilator response. The single breath carbon monoxide diffusion uncorrected for hemoglobin was moderately reduced. Air trapping was noted on lung volumes (plethysmography). He is followed consistently by pulmonology for ongoing dyspnea with exertion thought secondary to COPD/chronic bronchitis, undiagnosed sleep disordered breathing in setting of significant weight gain (since prior PSG) and deconditioning. Per outpatient pulmonology notes PSG (02/26/2016) was unremarkable. Low dose CT scan chest on 09/26/2021 revealed minimal emphysematous changes wtih biapical scarring and small bulla. Stable lung nodules, and atelectatic changes were also noted. Medications were reviewed. He reports not taking his Breo for the last few days and only takes Flonase nasal spray as needed. He reports his son and are both aware he is here in the ER and have been updated with the plan. Allergies Allergy/AdvReac Type Severity Reaction Status Date / Time No Known Allergies Allergy Verified 02/19/20 14:29 Home Medications Medication Instructions Recorded Confirmed Type albuterol sulfate 90 mcg/actuation 2 puffs inhalation Q6H PRN 12/26/18 09/28/22 History aerosol inhaler (Ventolin HFA) Shortness Of Breath naproxen sodium 220 mg tablet 440 mg PO Q12H PRN Pain 03/26/19 09/28/22 History (Aleve) simethicone 125 mg chewable tablet 125 mg PO BID PRN Gas 03/26/19 09/28/22 History (Gas-X Extra Strength) chlorpheniramine 4 1 tab PO Q8 PRN allergy symptoms 02/19/20 09/28/22 Rx mg-phenylephrine 10 mg-DM 10 mg and cough #60 tabs tablet coffee 100 mg theanine 200 mg 1 cap PO DAILY 02/19/20 09/28/22 History superoxide dismutase 10 mg capsule (Neuriva De-Stress) atorvastatin 20 mg tablet 20 mg PO DAILY 09/23/22 09/28/22 History esomeprazole magnesium 20 mg 20 mg PO DAILY 09/23/22 09/28/22 History capsule,delayed release (Nexium) fluticasone furoate 100 1 inh inhalation QAM 09/23/22 09/28/22 History mcg-vilanterol 25 mcg/dose inhalation powder (Breo Ellipta) fluticasone propionate 50 1 spray intranasal DAILY PRN Other 09/23/22 09/28/22 History mcg/actuation nasal spray,suspension (Flonase Allergy Relief) tamsulosin 0.4 mg capsule 0.4 mg PO DAILY 09/28/22 09/28/22 History Past Med/Surg History Medical History (Updated 09/28/22 @ 15:01 by Kaitlin Cardoza DO) Aortic root enlargement COPD (chronic obstructive pulmonary disease) GERD without esophagitis Pneumonia Sciatica Severe obesity (BMI 35.0-35.9 with comorbidity) Syncope Surgical History No pertinent past surgical history Family History Sister Breast cancer Other No pertinent family history in first degree relatives Social History (Updated 09/28/22 @ 14:57 by Kaitlin Cardoza DO) Smoking Status: Former smoker Tobacco Type: Cigars Hx Alcohol Use: No Hx Substance Use: No Preferred Language: Mohawk Feels Safe at Home: Yes Review of Systems Review of Systems: All systems were reviewed and negative except as indicated on HPI above. Physical Exam Physical Exam: CONSTITUTIONAL: WNWD, vitals as above, generally well-appearing, sleepy after morphine, semi-recumbent position in the bed. EYES: PERRL, normal conjunctivae, no scleral icterus ENT: external ear and nose normal, MMM NECK: trachea midline, there was a bilateral supraclavicular prominence that was symmetric. When stethoscope was placed over this area there was no evidence of subcutaneous emphysema. There was no asymmetry suggesting normal anatomy for him. RESPIRATORY: clear to auscultation bilaterally with only mild crackles at the left lung base and good airflow without wheezing otherwise. normal respiratory effort CARDIOVASCULAR: regular rate and rhythm, S1 and 2 heard without murmurs, gallops or rubs, no JVD, no peripheral edema, no carotid bruits CHEST: inspection of chest reveals pigtail catheter in left chest wall to water seal. GASTROINTESTINAL: soft, nontender, ND, no guarding MUSCULOSKELETAL: strength 5/5 throughout, head is normocephalic and atraumatic SKIN: warm and dry NEUROLOGIC: CN 2-12 grossly intact, no sensory deficit, normal cognition, n ormal speech, no tremor PSYCHIATRIC: alert cooperative and oriented to person, place and time. Euthymic mood, makes good eye contact, language grossly intact, recent and remote memory grossly intact. Results & Data Results & Data Vital Signs (Past 12 Hours) Vital Signs Temp Pulse Pulse Resp BP BP Pulse Ox 09/28/22 14:29 70 18 148/90 H 92 09/28/22 12:28 69 09/28/22 12:36 70 18 144/93 H 93 09/28/22 11:02 94 09/28/22 10:31 78 19 175/115 H 99 09/28/22 10:21 78 28 H 178/101 H 97 09/28/22 10:09 76 20 172/104 H 100 09/28/22 09:58 78 24 173/110 H 99 09/28/22 09:44 72 20 168/111 H 100 09/28/22 09:13 83 20 96 09/28/22 09:13 96 09/28/22 08:41 09/28/22 08:34 87 09/28/22 08:34 96 09/28/22 08:21 36.8 C 83 26 H 189/112 H 90 O2 Del Method O2 Flow Rate 09/28/22 14:29 Nasal Cannula 2 09/28/22 12:28 09/28/22 12:36 Nasal Cannula 3 09/28/22 11:02 Nasal Cannula 4 09/28/22 10:31 Non-rebreather 12 09/28/22 10:21 Non-rebreather 12 09/28/22 10:09 Non-rebreather 12 09/28/22 09:58 Non-rebreather 12 09/28/22 09:44 Non-rebreather 15 09/28/22 09:13 Nasal Cannula 2 09/28/22 09:13 Nasal Cannula 2 09/28/22 08:41 Room Air 09/28/22 08:34 09/28/22 08:34 Nasal Cannula 2 09/28/22 08:21 Room Air Laboratory Results Short CBC 09/28/22 Range/Units 08:30 WBC 6.98 (4.8-10.8) K/ul Hgb 16.4 (14.0-18.0) g/dl Hct 46.8 (42.0-52.0) % Plt Count 335 (130-400) K/uL BMP 09/28/22 08:30 Sodium 137 Potassium 4.2 Chloride 103 Carbon Dioxide 27 BUN 8 Creatinine 0.83 Glucose 106 H Calcium 10.1 Liver Function 09/28/22 Range/Units 08:30 Total Bilirubin 1.1 H (0.2-1.0) mg/dl AST 34 (13-39) U/L ALT 48 (7-52) U/L Alkaline Phosphatase 95 (34-104) U/L Albumin 4.8 (3.4-5.0) gm/dl Diagnostic Findings Chest X-Ray 09/28/22 08:43 XR chest 1V portable CLINICAL HISTORY: eval left PTX TECHNIQUE: Single frontal radiograph of the chest was obtained. Comparison: Comparison is made to chest radiograph 09/23/2022 FINDINGS: No lines and tubes are seen. The cardiomediastinal silhouette is normal. There is a large left pneumothorax with complete collapse of the left lung and minimal midline shift. No evidence of pleural effusion or pneumothorax. Multiple left rib fractures are seen which appear slightly more displaced. IMPRESSION: 1. Large left pneumothorax without a significant component of tension pneumothorax. 2. Multiple left rib fractures which appear somewhat more displaced on today's exam. ACT 112: Negative or not required by law. Electronically signed by: Addi Mcgowan M.D. 09/28/2022 9:35 AM Chest X-Ray 09/28/22 11:00 XR chest 1V portable CLINICAL HISTORY: ptx TECHNIQUE: Single frontal radiograph of the chest was obtained. Comparison: Comparison is made to chest radiograph 09/28/2022 FINDINGS: There is a chest tube in the soft tissues of the left lateral chest, the pigtail lies outside the chest cavity. The lungs are clear. Large left pneumothorax is again seen. IMPRESSION: Large left pneumothorax remains. The chest tube appears to terminate outside the thoracic cavity. ACT 112: Negative or not required by law. Electronically signed by: Addi Mcgowan M.D. 09/28/2022 11:17 AM Chest X-Ray 09/28/22 12:32 XR chest 1V portable HISTORY: 61 years-old Male Pneumo follow-up study in a patient with a left- sided pleural catheter COMPARISON: 09/28/2022 TECHNIQUE: AP view of the chest FINDINGS: Cardiac silhouette is enlarged. Resolution of the midline shift. Pulmonary vascular congestion. Mild bibasilar atelectasis. Trace left pleural effusion. There is improved aeration of the left lung status post placement of a pleural pigtail catheter distal tip projected in the left midlung. There is improved aeration of left lung with only a trace residual left-sided pneumothorax or pleural separation measuring 6 mm laterally. IMPRESSION: Improved aeration of the left lung status post placement of a pigtail pleural catheter with trace residual pneumothorax. ACT 112: Negative or not required by law. The above report was generated using voice recognition software. It may contain grammatical, syntax or spelling errors. Electronically signed by: Bijan Peñaloza M.D. 09/28/2022 12:[address] 09/28/22 12:44 CT chest diagnostic w con CLINICAL HISTORY: eval rib fracture and PTX TECHNIQUE: Multidetector row helical CT of the chest was performed with intravenous contrast. Coronal and sagittal reformations were obtained. Automated dose lowering techniques and/or adjustment according to patient size were utilized for this exam. CT DOSE: 856.94 mGy.cm Comparison: Comparison is made to chest 09/23/2022 FINDINGS: Lungs and pleura: Previously noted pneumothorax has resolved. There is a small left pleural effusion. There are groundglass and airspace opacities in the left lung and left greater than right atelectasis. A chest tube is noted in the left lung base. Heart and pericardium: Heart size is normal. No pericardial effusion. Vessels: Unremarkable. Mediastinum and reginaldo: Unremarkable. Chest wall and lower neck: Chest tube is seen on the left with a small amount of subcutaneous emphysema. Abdomen: Hepatic steatosis is noted. Bones: Fractures of the sixth through eighth ribs are again seen. IMPRESSION: 1. Satisfactory appearance of chest tube with no significant residual pneumothorax small left pleural effusion. Airspace opacities may represent aspiration and/or pneumonia. 2. Redemonstration of left-sided rib fractures. ACT 112: Negative or not required by law. Electronically signed by: Addi Mcgowan M.D. 09/28/2022 1:40 PM (3) Left rib fracture Encounter type: subsequent encounter Fracture type: closed Rib fracture type: multiple ribs (4) Pulmonary edema Chronicity: acute Qualified Code(s): J81.0 - Acute pulmonary edema
[2022-09-28] MEDS ORDERED: ALBUTEROL HFA 8 GM INHALER INH PRN (15:28)
[2022-09-28] MEDS ORDERED: POLYETHYLENE (MIRALAX) 17 GM PACK PO PRN (16:50)
[2022-09-28] MEDS ORDERED: ONDANSETRON INJ 2 MG/ML 2 ML VIAL IV PRN (16:50)
[2022-09-28] MEDS: ACETAMINOPHEN 500 MG TAB PO PRN (21:15)
[2022-09-28] MEDS: oxyCODONE HCL IR 5 MG TAB (IMMEDIATE RELEASE) PO PRN (21:15)
[2022-09-28] MEDS: KETOROLAC TROMETHAMINE 15 MG/ML VIAL IV PRN (21:16)
[2022-09-29] MEDS: KETOROLAC TROMETHAMINE 15 MG/ML VIAL IV PRN ×3 (03:17→20:39)
[2022-09-29] MEDS: oxyCODONE HCL IR 5 MG TAB (IMMEDIATE RELEASE) PO PRN ×3 (03:18→20:39)
[2022-09-29] MEDS: MoRPHine SULFATE 2 MG/ML CARP IV PRN ×4 (03:21→20:39)
--- NOTE | 2022-09-29 05:45 | Electrocardiogram Report ---
Test Reason : Blood Pressure : / mmHG Vent. Rate : 085 BPM Atrial Rate : 085 BPM P-R Int : 156 ms QRS Dur : 086 ms QT Int : 370 ms P-R-T Axes : 078 072 075 degrees QTc Int : 440 ms Poor data quality, interpretation may be adversely affected Normal sinus rhythm Nonspecific ST and T wave abnormality Abnormal ECG When compared with ECG of 23-SEP-2022 10:06, Nonspecific T wave abnormality now evident in Lateral leads Confirmed by Nj Morelos ([id number]) on 09/29/2022 5:45:29 AM Referred By: REFERRED SELF Confirmed By:Nj Morelso
--- NOTE | 2022-09-29 07:57 | Pulmonology Progress Note ---
Date of Service September 29, 2022 Assessment & Plan (1) Pneumothorax, left: (2) Obesity (BMI 30.0-34.9): (3) Abnormal chest CT: (4) Left rib fracture: Encounter type: subsequent encounter Fracture type: closed Rib fracture type: multiple ribs Plan CT chest 09/28/2022 personally reviewed: Bilateral blebs appreciated apical Patchy groundglass opacities appreciated in the left upper as well as left lower lobe Dependent atelectasis of the left lower lobe Small left-sided pleural effusion No significant mediastinal lymphadenopathy -- Traumatic pneumothorax S/p fall with left-sided rib fractures Chest tube placed 09/28/2022 in the ER Pain management for rib fractures -- Reexpansion pulmonary edema Continue to monitor O2 supplementation to keep oxygen saturation 90-92% --Bilateral upper lobe blebs Patient used to smoke 7 to 8 cigars on a yearly basis, quit in 2014 Monitor --Pulmonary nodule 4 mm left lower lobe Unchanged dating back January 2018 In a patient who is low risk given insignificant smoking history No further follow-up needed Plan: Chest x-ray from today does not show any signs of pneumothorax. Given the severity of the pneumothorax that he had. We will continue with chest tube for 1 more day. If chest x-ray tomorrow does not show any pneumothorax, plan would be to clamp the tube for 4 hours and repeating a chest x-ray. Pain management Avoid positive pressure ventilation Please note the above document was generated using voice recognition software. It may contain grammatical, syntax or spelling errors.Any formal questions or concerns about the content, text or information contained within the body of this dictation should be directly addressed to the provider for clarification. Admission and Anticipated Discharge Date Admission Date: September 28, 2022 Subjective Patient seen and examined at bedside. No acute distress, no adverse events overnight Does complain of discomfort at the site of the chest tube Overall he is feeling better after coming to the hospital Shortness of breath is improved No chest pain Fair appetite No nausea or vomiting Review of Systems Review of Systems: All systems reviewed & are unremarkable except as noted in Subjective Physical Exam Physical Exam: Constitutional: No acute distress HEENT: EOMI, PERRLA Respiratory system: Decreased air entry but laterally, no wheeze, rhonchi, positive crackles bilateral lower lobes CVS: S1-S2 positive, no murmurs or gallops Abdomen: Soft, nontender, nondistended, positive bowel sounds x4, obese Extremities: +2 pulses bilaterally radialis/ dorsalis pedis, no cyanosis, no edema Neuro: Awake alert oriented x3 Psych: Normal mood and affect G/U: No [place] Skin: no rashes, warm and dry Lymphatic: no cervical or axillary lymphadenopathy Results & Data Results & Data Vital Signs (Past 12 Hours) Vital Signs Temp Pulse Pulse Resp BP Pulse Ox O2 Del Method 09/29/22 07:12 36.7 C 64 19 148/92 H 94 Nasal Cannula 09/29/22 03:55 36.7 C 60 19 131/88 94 Nasal Cannula 09/28/22 22:00 75 09/28/22 23:41 36.8 C 64 16 128/75 93 Nasal Cannula 09/28/22 21:23 Nasal Cannula O2 Flow Rate 09/29/22 07:12 2 09/29/22 03:55 2 09/28/22 22:00 09/28/22 23:41 2 09/28/22 21:23 1 Laboratory Results 09/28/22 08:30 09/28/22 08:30 PG Care Time/CCT Total # of Minutes Spent Total Time Spent with Patient: Total time spent is greater than 50% in coordination of care (as documented) at patient's floor/unit and/or counseling patient: Coding Level of Care Code 01219 SUB INP/OBS CARE 3/50MIN Diagnoses Pneumothorax, left J93.9 Obesity (BMI 30.0-34.9) E66.[address] R93.89 Left rib fracture S22.32XA Encounter type: subsequent encounter Fracture type: closed Rib fracture type: multiple ribs
[2022-09-29 08:10] LABS: Hematocrit (blood only) 41.8 % (42.0-52.0); Hemoglobin 14.5 g/dl (14.0-18.0); Mean Corpuscular Hemoglobin 30.1 pg (25.0-34.0); Mean Corpuscular Hgb Conc 34.7 g/dL (32.0-36.0); Mean Corpuscular Volume 86.9 fL (80.0-100.0); Mean Platelet Volume 8.9 fL (9.4-12.4); Platelet Count 288 K/uL (130-400); RDW Coefficient of Variation 12.8 % (11.5-14.5); RDW Standard Deviation 40.7 fL (36.4-46.3); Red Blood Count 4.81 M/uL (4.70-6.10); White Blood Count 6.18 K/ul (4.8-10.8)
[2022-09-29] MEDS: FLUTICASONE/VILANTEROL 100/25MCG 14 PUFFS/INHALER INH SCH (08:17)
[2022-09-29] MEDS: TAMSULOSIN HCL 0.4 MG CAP PO SCH (08:17)
[2022-09-29] MEDS: ATORVASTATIN 20 MG TAB PO SCH (08:17)
[2022-09-29] MEDS: PANTOprazole 40 MG TAB PO SCH (08:17)
[2022-09-29] MEDS: ENOXAPARIN INJ 40 MG/0.4 ML SYR SQ SCH (08:18)
[2022-09-29] MEDS ORDERED: guaiFENesin/DEXTROM SYRUP 200MG/20MG 10ML UDC PO PRN (08:19)
[2022-09-29 08:36] LABS: BUN Creatinine Ratio 20.5 (10-20); Creatinine Clr Calc Pharmacy 130.3 ml/min; Est GFR (Non-African American) 100.1 ml/min; Potassium 3.9 mmol/L (3.5-5.1)
--- NOTE | 2022-09-29 09:39 | XRay Report ---
SINGLE VIEW CHEST CLINICAL HISTORY: Chest tube and pneumothorax. FINDINGS: An AP, portable, upright chest radiograph is compared to chest x-ray and chest CT dated 09/09. The cardiomediastinal silhouette is unremarkable. A left-sided chest tube is unchanged in pos ition. No residual pneumothorax is clearly seen. There is a small left pleural effusion. Patchy airsp michelle consolidation is again seen in the left mid to lower lung. There is atelectasis at the right lung base. No pneumothorax is seen. Left-sided rib fractures are again noted. IMPRESSION: 1. A left-sided chest tube is unchanged in position. No residual pneumothorax is clearly identified. 2. Left pleural effusion with patchy airspace consolidation in the left mid to lower lung. 3. Left-sided rib fractures are again noted. ACT 112: Negative or not required by law. Electronically signed by: Mike Moscoso M.D. 09/29/2022 9:37 AM
[2022-09-29] MEDS: ACETAMINOPHEN 500 MG TAB PO PRN ×2 (11:52→20:38)
--- NOTE | 2022-09-29 15:38 | Hospitalist Progress Note ---
Date of Service September 29, 2022 Assessment & Plan (1) Acute respiratory failure with hypoxia: (2) Pneumothorax, left: (3) Left rib fracture: (4) Pulmonary edema: (5) COPD (chronic obstructive pulmonary disease): (6) Pulmonary nodule: (7) Severe obesity (BMI 35.0-35.9 with comorbidity): Plan Acute respiratory failure with hypoxia Left traumatic pneumothorax Secondary to fall with left-sided rib fractures Left lower lobe atelectasis Small left pleural effusion Reexpansion pulmonary edema --CT Chest:Acute nondisplaced fractures of the lateral sixth and seventh ribs with small left-sided hydropneumothorax. Bibasilar opacities suggest atelectasis. Hepatic steatosis with hepatomegaly. --S/P chest tube placement on 09/28/2022 Continue supplemental oxygen to keep saturation 90 to 92%. Appreciate pulmonology input Likely plan to clamp chest tube tomorrow Incentive spirometry Pulmonary nodule Incidental finding on CT Follow-up as outpatient COPD No signs of exacerbation Continue home inhalers Monitor Hyperlipidemia Continue statin GERD Continue PPI BPH Continue Flomax DVT Px: Lovenox SQ Code Status Full Code Admission and Anticipated Discharge Date Admission Date: September 28, 2022 Subjective Patient is seen and examined at bedside Less dyspnea today Decreased pleuritic pain as well Chronic cough unchanged Offers no other complaints Review of Systems Review of Systems: All systems reviewed & are unremarkable except as noted in Subjective Physical Exam Physical Exam: Physical Exam: Vitals signs as noted above General Appearance:Moderately built and nourished, no apparent distress Head: normocephalic, Atraumatic Eyes: normal inspection, EOMI Neck: supple, Trachea midline Respiratory/Chest: Decreased breath sounds, basal crackles, +Chest Tube Cardiovascular: S1, S2, No murmur Abdomen/GI:Soft, Non tender, Bowel sounds present Extremities/Musculoskeletal:normal inspection, no edema Neurologic/Psych:AAOX3, grossly no focal neurological deficits Skin: normal color, warm Results & Data Results & Data Vital Signs (Past 12 Hours) Vital Signs Temp Pulse Pulse Resp BP Pulse Ox O2 Del Method 09/29/22 15:21 36.7 C 80 19 149/88 H 93 Nasal Cannula 09/29/22 15:19 86 09/29/22 10:50 36.7 C 72 19 122/73 91 Nasal Cannula 09/29/22 08:00 Nasal Cannula 09/29/22 07:00 61 09/29/22 07:12 36.7 C 64 19 148/92 H 94 Nasal Cannula 09/29/22 03:55 36.7 C 60 19 131/88 94 Nasal Cannula O2 Flow Rate 09/29/22 15:21 1 09/29/22 15:19 09/29/22 10:50 1 09/29/22 08:00 1 09/29/22 07:00 09/29/22 07:12 2 09/29/22 03:55 2 Laboratory Results Short CBC 09/29/22 Range/Units 07:43 WBC 6.18 (4.8-10.8) K/ul Hgb 14.5 (14.0-18.0) g/dl Hct 41.8 L (42.0-52.0) % Plt Count 288 (130-400) K/uL BMP 09/29/22 07:43 Sodium 134 L Potassium 3.9 Chloride 103 Carbon Dioxide 24 BUN 15 Creatinine 0.73 Glucose 99 Calcium 9.0 (3) Left rib fracture Encounter type: subsequent encounter Fracture type: closed Rib fracture type: multiple ribs (4) Pulmonary edema Chronicity: acute Qualified Code(s): J81.0 - Acute pulmonary edema
[2022-09-30] MEDS: MoRPHine SULFATE 2 MG/ML CARP IV PRN ×3 (01:01→09:08)
[2022-09-30] MEDS: oxyCODONE HCL IR 5 MG TAB (IMMEDIATE RELEASE) PO PRN ×2 (04:54→12:41)
[2022-09-30] MEDS: KETOROLAC TROMETHAMINE 15 MG/ML VIAL IV PRN ×2 (04:55→12:41)
[2022-09-30] MEDS: ACETAMINOPHEN 500 MG TAB PO PRN (04:56)
--- NOTE | 2022-09-30 07:19 | XRay Report ---
XR chest 1V portable HISTORY: 61 years-old Male f/u acute shortness of breath COMPARISON: 09/29/2022 TECHNIQUE: AP view of the chest FINDINGS: Left-sided pleural catheter is in unchanged positioning. No pneumothorax identified. Unchanged right hemidiaphragmatic elevation. Mild persistent left basilar atelectasis. Cardiac mediastinal and hilar silhouettes are unchanged. Degenerative changes of the shoulders and spine. Left-sided rib fractures redemonstrated. IMPRESSION: 1. Stable positioning of the left-sided pleural catheter. No definite pneumothorax identified. 2. Left-sided rib fractures with left basilar atelectasis redemonstrated. ACT 112: Negative or not required by law. The above report was generated using voice recognition software. It may contain grammatical, syntax o r spelling errors. Electronically signed by: Bijan Peñaloza M.D. 09/30/2022 7:17 AM
[2022-09-30 07:20] LABS: Hematocrit (blood only) 38.7 % (42.0-52.0); Hemoglobin 13.4 g/dl (14.0-18.0); Mean Corpuscular Hemoglobin 30.4 pg (25.0-34.0); Mean Corpuscular Hgb Conc 34.6 g/dL (32.0-36.0); Mean Corpuscular Volume 87.8 fL (80.0-100.0); Mean Platelet Volume 8.9 fL (9.4-12.4); Platelet Count 269 K/uL (130-400); RDW Coefficient of Variation 12.6 % (11.5-14.5); RDW Standard Deviation 40.4 fL (36.4-46.3); Red Blood Count 4.41 M/uL (4.70-6.10); White Blood Count 6.28 K/ul (4.8-10.8)
--- NOTE | 2022-09-30 07:30 | Pulmonology Progress Note ---
Date of Service September 30, 2022 Assessment & Plan (1) Pneumothorax, left: (2) Obesity (BMI 30.0-34.9): (3) Abnormal chest CT: (4) Left rib fracture: Encounter type: subsequent encounter Fracture type: closed Rib fracture type: multiple ribs Plan CT chest 09/28/2022 personally reviewed: Bilateral blebs appreciated apical Patchy groundglass opacities appreciated in the left upper as well as left lower lobe Dependent atelectasis of the left lower lobe Small left-sided pleural effusion No significant mediastinal lymphadenopathy -- Traumatic pneumothorax S/p fall with left-sided rib fractures Chest tube placed 09/28/2022 in the ER Pain management for rib fractures -- Reexpansion pulmonary edema Continue to monitor O2 supplementation to keep oxygen saturation 90-92% --Bilateral upper lobe blebs Patient used to smoke 7 to 8 cigars on a yearly basis, quit in 2014 Monitor --Pulmonary nodule 4 mm left lower lobe Unchanged dating back January 2018 In a patient who is low risk given insignificant smoking history No further follow-up needed Plan: Chest x-ray from today does not show any signs of pneumothorax We will clamp the tube now and repeat a chest x-ray in 4 hours. If on the repeat chest x-ray no pneumothorax then we will remove the chest tube I advised the patient not to lift anything heavy for at least 2-3 weeks. No flying for 6 weeks No scuba diving for 6 to 8 weeks Case was discussed with Dr. Fajardo Please note the above document was generated using voice recognition software. It may contain grammatical, syntax or spelling errors.Any formal questions or concerns about the content, text or information contained within the body of this dictation should be directly addressed to the provider for clarification. Admission and Anticipated Discharge Date Admission Date: September 28, 2022 Subjective Patient seen and examined at bedside. No acute distress, no adverse events overnight No headache, no nausea, no vomiting does complain of discomfort at the site of the chest tube No coughing. No hemoptysis Has been afebrile Review of Systems Review of Systems: All systems reviewed & are unremarkable except as noted in Subjective Physical Exam Physical Exam: Constitutional: No acute distress HEENT: EOMI, PERRLA Respiratory system: Decreased air entry but laterally, no wheeze, rhonchi, positive crackles bilateral lower lobes CVS: S1-S2 positive, no murmurs or gallops Abdomen: Soft, nontender, nondistended, positive bowel sounds x4, obese Extremities: +2 pulses bilaterally radialis/ dorsalis pedis, no cyanosis, no meagan ma Neuro: Awake alert oriented x3 Psych: Normal mood and affect G/U: No [place] Skin: no rashes, warm and dry Lymphatic: no cervical or axillary lymphadenopathy Results & Data Results & Data Vital Signs (Past 12 Hours) Vital Signs Temp Pulse Pulse Resp BP Pulse Ox O2 Del Method 09/30/22 05:02 64 18 92 Room Air 09/30/22 02:58 36.5 C 62 16 131/84 95 Room Air 09/29/22 22:05 71 09/29/22 23:22 36.5 C 62 20 147/86 H 96 Nasal Cannula 09/29/22 20:59 Nasal Cannula 09/29/22 19:35 36.7 C 74 20 150/90 H 92 Nasal Cannula O2 Flow Rate 09/30/22 05:02 09/30/22 02:58 09/29/22 22:05 09/29/22 23:22 1 09/29/22 20:59 1 09/29/22 19:35 1 Laboratory Results 09/30/22 06:48 PG Care Time/CCT Total # of Minutes Spent Total Time Spent with Patient: Total time spent is greater than 50% in coordination of care (as documented) at patient's floor/unit and/or counseling patient: Coding Level of Care Code 58851 SUB INP/OBS CARE 2/35MIN Diagnoses Pneumothorax, left J93.9 Obesity (BMI 30.0-34.9) E66.[address] R93.89 Left rib fracture S22.32XA Encounter type: subsequent encounter Fracture type: closed Rib fracture type: multiple ribs
[2022-09-30 07:47] LABS: BUN Creatinine Ratio 16.9 (10-20); Calcium 8.6 mg/dl (8.6-10.3); Est GFR (African American) 117.4 ml/min; Est GFR (Non-African American) 101.3 ml/min; Magnesium 2.3 mg/dl (1.7-2.4); Potassium 3.8 mmol/L (3.5-5.1)
[2022-09-30] MEDS: TAMSULOSIN HCL 0.4 MG CAP PO SCH (09:08)
[2022-09-30] MEDS: ENOXAPARIN INJ 40 MG/0.4 ML SYR SQ SCH (09:09)
[2022-09-30] MEDS: PANTOprazole 40 MG TAB PO SCH (09:09)
[2022-09-30] MEDS: ATORVASTATIN 20 MG TAB PO SCH (09:09)
[2022-09-30] MEDS: FLUTICASONE/VILANTEROL 100/25MCG 14 PUFFS/INHALER INH SCH (09:09)
--- NOTE | 2022-09-30 12:20 | Procedure Note ---
Procedure Note Date of Service September 30, 2022 Note Procedure: Pigtail chest tube removal [employer] Loan Originator Assistant: Dr. Jung Cardona Indication: No pneumothorax Consent: Verbal consent was obtained from the patient Anesthesia: None Procedure: Patient was placed in a seated position. Under aseptic precautions the old dressing was removed, patient had the chest tube sutured which was also removed with the help of a scissor. On examination chest tube was removed. It was found to be intact. Vaseline gauze was applied followed by 4 x 4 and silk tape Tolerated the procedure well without any complications Complications: None Please note the above document was generated using voice recognition software. It may contain grammatical, syntax or spelling errors.Any formal questions or concerns about the content, text or information contained within the body of this dictation should be directly addressed to the provider for clarification. Coding CPT Codes Pulmonary/Thoracic - Pulmonary and Thoracic: 04453 Remove lung catheter ([id number]) [facility] [place] Procedure Codes (Charges) Pulmonary/Thoracic Procedure 1: Pulmonary and Thoracic: 06193 Remove lung catheter
--- NOTE | 2022-09-30 12:24 | XRay Report ---
XR chest 1V portable CLINICAL HISTORY: Post clamping of chest tube TECHNIQUE: Single frontal radiograph of the chest was obtained. Comparison: Comparison is made to chest radiograph 10/01/2019 FINDINGS: Stable appearance of left chest tube. The cardiomediastinal silhouette is normal. The lungs are clear . No evidence of pleural effusion or pneumothorax. Partial visualization of left rib fractures. IMPRESSION: Interval stability of chest tube. No evidence of pneumothorax. Redemonstration of left rib fractures. ACT 112: Negative or not required by law. Electronically signed by: Addi Mcgowan M.D. 09/30/2022 12:23 PM
[2022-09-30] MEDS ORDERED: DEXTROMETHORPHAN POLYMR COMPLX 30 MG/5 ML UDP PO PRN (13:43)
--- NOTE | 2022-09-30 13:46 | Hospitalist Progress Note ---
Date of Service September 30, 2022 Assessment & Plan (1) Acute respiratory failure with hypoxia: (2) Pneumothorax, left: (3) Left rib fracture: (4) Pulmonary edema: (5) COPD (chronic obstructive pulmonary disease): (6) Pulmonary nodule: (7) Severe obesity (BMI 35.0-35.9 with comorbidity): Plan Acute respiratory failure with hypoxia Left traumatic pneumothorax Secondary to fall with left-sided rib fractures Left lower lobe atelectasis Small left pleural effusion Reexpansion pulmonary edema --CT Chest:Acute nondisplaced fractures of the lateral sixth and seventh ribs with small left-sided hydropneumothorax. Bibasilar opacities suggest atelectasis. Hepatic steatosis with hepatomegaly. --S/P chest tube placement on 09/28/2022 Weaned off of supplemental oxygen Saturating well on room air Chest x-ray today showed no signs of pneumothorax Chest tube clamped and repeated chest x-ray in 4 hours showed no pneumothorax. Appreciate pulmonology input Continue Incentive spirometry Advised not to lift anything heavy for at least 2 to 3 weeks. No flying for 6 weeks. No scuba diving for 6 to 8 weeks. Plan to discharge home today Pulmonary nodule Incidental finding on CT Follow-up as outpatient COPD No signs of exacerbation Continue home inhalers Monitor Hyperlipidemia Continue statin GERD Continue PPI BPH Continue Flomax DVT Px: Lovenox SQ Code Status Full Code Disposition Home Admission and Anticipated Discharge Date Admission Date: September 28, 2022 Subjective Patient is seen and examined at bedside States feeling well today Discomfort at the site of chest tube much improved Discussed with pulmonology today No new complaints Plan to discharge home today Review of Systems Review of Systems: All systems reviewed & are unremarkable except as noted in Subjective Physical Exam Physical Exam: Physical Exam: Vitals signs as noted above General Appearance:Moderately built and nourished, no apparent distress Head: normocephalic, Atraumatic Eyes: normal inspection, EOMI Neck: supple, Trachea midline Respiratory/Chest: Decreased breath sounds, basal crackles Cardiovascular: S1, S2, No murmur Abdomen/GI:Soft, Non tender, Bowel sounds present Extremities/Musculoskeletal:normal inspection, no edema Neurologic/Psych:AAOX3, grossly no focal neurological deficits Skin: normal color, warm Results & Data Results & Data Vital Signs (Past 12 Hours) Vital Signs Temp Pulse Pulse Resp BP Pulse Ox O2 Del Method 09/30/22 11:10 36.7 C 70 18 135/76 93 Room Air 09/30/22 08:00 Room Air 09/30/22 07:00 67 09/30/22 05:02 64 18 92 Room Air 09/30/22 02:58 36.5 C 62 16 131/84 95 Room Air Laboratory Results Short CBC 09/30/22 Range/Units 06:48 WBC 6.28 (4.8-10.8) K/ul Hgb 13.4 L (14.0-18.0) g/dl Hct 38.7 L (42.0-52.0) % Plt Count 269 (130-400) K/uL BMP 09/30/22 06:48 Sodium 135 L Potassium 3.8 Chloride 104 Carbon Dioxide 26 BUN 12 Creatinine 0.71 Glucose 97 Calcium 8.6 (3) Left rib fracture Encounter type: subsequent encounter Fracture type: closed Rib fracture type: multiple ribs (4) Pulmonary edema Chronicity: acute Qualified Code(s): J81.0 - Acute pulmonary edema
--- NOTE | 2022-09-30 14:32 | Discharge Summary ---
Date of Service September 30, 2022 Admission HPI Per Admitting Provider 61 yo M presented with worsening shortness of breath worsening spontaneously since yesterday around noon. He was found to have a large left pneumothorax without a significant component of tension pneumothorax radiographically and multiple left rib fractures which appear somewhat more displaced on today's exam. He had been seen at [facility] ER on 09/23 after a fall on his steps. At that visit he was seen to have a small left sided pneumothorax. A repeat CXR a few hours later revealed stability and he was sent home. He reports severe coughing fits since that time. A chest tube was placed in the ER with re-expansion of the lung and improvement in oxygenation. He was seen by pulmonary today who recommends continuing chest tube to water seal, pain management and daily chest x-rays. He is currently o xygenating 92% on 2LPM via nasal canula and in no acute respiratory distress. Per outpatient records, he was treated for acute bronchitis and sinuitis on 08/03/22 with Augmentin and a prednisone taper. Spirometry performed on 12/2021 was normal without bronchodilator response. The single breath carbon monoxide diffusion uncorrected for hemoglobin was moderately reduced. Air trapping was noted on lung volumes (plethysmography). He is followed consistently by pulmonology for ongoing dyspnea with exertion thought secondary to COPD/chronic bronchitis, undiagnosed sleep disordered breathing in setting of significant weight gain (since prior PSG) and deconditioning. Per outpatient pulmonology notes PSG (02/26/2016) was unremarkable. Low dose CT scan chest on 09/26/2021 revealed minimal emphysematous changes wtih biapical scarring and small bulla. Stable lung nodules, and atelectatic changes were also noted. Medications were reviewed. He reports not taking his Breo for the last few days and only takes Flonase nasal spray as needed. He reports his son and are both aware he is here in the ER and have been updated with the plan. Admission Exam Per Admitting Provider CONSTITUTIONAL: WNWD, vitals as above, generally well-appearing, sleepy after morphine, semi-recumbent position in the bed. EYES: PERRL, normal conjunctivae, no scleral icterus ENT: external ear and nose normal, MMM NECK: trachea midline, there was a bilateral supraclavicular prominence that was symmetric. When stethoscope was placed over this area there was no evidence of subcutaneous emphysema. There was no asymmetry suggesting normal anatomy for him. RESPIRATORY: clear to auscultation bilaterally with only mild crackles at the left lung base and good airflow without wheezing otherwise. normal respiratory effort CARDIOVASCULAR: regular rate and rhythm, S1 and 2 heard without murmurs, gallops or rubs, no JVD, no peripheral edema, no carotid bruits CHEST: inspection of chest reveals pigtail catheter in left chest wall to water seal. GASTROINTESTINAL: soft, nontender, ND, no guarding MUSCULOSKELETAL: strength 5/5 throughout, head is normocephalic and atraumatic SKIN: warm and dry NEUROLOGIC: CN 2-12 grossly intact, no sensory deficit, normal cognition, normal speech, no tremor PSYCHIATRIC: alert cooperative and oriented to person, place and time. Euthymic mood, makes good eye contact, language grossly intact, recent and remote memory grossly intact. Principal Diagnosis Acute respiratory failure with hypoxia Left traumatic pneumothorax Left-sided rib fractures Pulmonary nodule Discharge Data Allergies Allergy/AdvReac Type Severity Reaction Status Date / Time No Known Allergies Allergy Verified 02/19/20 14:29 Consultations 09/28/22 14:33 ED Decision to Admit Stat 09/28/22 16:50 Consult Pulmonology Routine Procedures Performed Laboratory Results WBC 6.28 K/ul (4.8-10.8) 09/30/22 06:48 RBC 4.41 M/uL (4.70-6.10) L 09/30/22 06:48 Hgb 13.4 g/dl (14.0-18.0) L 09/30/22 06:48 Hct 38.7 % (42.0-52.0) L 09/30/22 06:48 MCV 87.8 fL (80.0-100.0) 09/30/22 06:48 MCH 30.4 pg (25.0-34.0) 09/30/22 06:48 MCHC 34.6 g/dL (32.0-36.0) 09/30/22 06:48 RDW Std Deviation 40.4 fL (36.4-46.3) 09/30/22 06:48 RDW Coeff of Greg 12.6 % (11.5-14.5) 09/30/22 06:48 Plt Count 269 K/uL (130-400) 09/30/22 06:48 MPV 8.9 fL (9.4-12.4) L 09/30/22 06:48 Immature Gran % (Auto) 0.4 % 09/28/22 08:30 Neut % (Auto) 78.3 % 09/28/22 08:30 Lymph % (Auto) 9.7 % 09/28/22 08:30 [place] % (Auto) 8.9 % 09/28/22 08:30 Eos % (Auto) 2.4 % 09/28/22 08:30 Baso % (Auto) 0.3 % 09/28/22 08:30 Neut # (Auto) 5.46 K/uL (1.40-6.50) 09/28/22 08:30 Lymph # (Auto) 0.68 K/uL (1.2-3.4) L 09/28/22 08:30 [place] # (Auto) 0.62 K/uL (0.11-0.59) H 09/28/22 08:30 Eos # (Auto) 0.17 K/uL (0-0.50) 09/28/22 08:30 Baso # (Auto) 0.02 K/uL (0-0.2) 09/28/22 08:30 Immature Gran # (Auto) 0.03 K/uL (0.01-0.20) 09/28/22 08:30 PT 11.1 Seconds (9.0-12.0) 09/28/22 08:30 INR 1.0 (0.9-1.1) 09/28/22 08:30 Sodium 135 mmol/L (136-145) L 09/30/22 06:48 Potassium 3.8 mmol/L (3.5-5.1) 09/30/22 06:48 Chloride 104 mmol/L (98-107) 09/30/22 06:48 Carbon Dioxide 26 mmol/L (21-32) 09/30/22 06:48 Anion Gap 5 (3-11) 09/30/22 06:48 BUN 12 mg/dl (6-23) 09/30/22 06:48 Creatinine 0.71 mg/dl (0.6-1.4) 09/30/22 06:48 Est Cr Clr Drug Dosing 135.0 ml/min 09/30/22 06:48 Est GFR ( Amer) 117.4 ml/min 09/30/22 06:48 Est GFR (Non-Af Amer) 101.3 ml/min 09/30/22 06:48 BUN/Creatinine Ratio 16.9 (10-20) 09/30/22 06:48 Glucose 97 mg/dl (70-99(Fasting)) 09/30/22 06:48 Calcium 8.6 mg/dl (8.6-10.3) 09/30/22 06:48 Magnesium 2.3 mg/dl (1.7-2.4) 09/30/22 06:48 Total Bilirubin 1.1 mg/dl (0.2-1.0) H 09/28/22 08:30 AST 34 U/L (13-39) 09/28/22 08:30 ALT 48 U/L (7-52) 09/28/22 08:30 Alkaline Phosphatase 95 U/L (34-104) 09/28/22 08:30 Total Protein 8.2 gm/dl (6.0-8.3) 09/28/22 08:30 Albumin 4.8 gm/dl (3.4-5.0) 09/28/22 08:30 Globulin 3.4 gm/dl (2.5-4.0) 09/28/22 08:30 Albumin/Globulin Ratio 1.4 (0.9-2) 09/28/22 08:[address] 09/28/22 12:44 CT chest diagnostic w con CLINICAL HISTORY: eval rib fracture and PTX TECHNIQUE: Multidetector row helical CT of the chest was performed with intravenous contrast. Coronal and sagittal reformations were obtained. Automated dose lowering techniques and/or adjustment according to patient size were utilized for this exam. CT DOSE: 856.94 mGy.cm Comparison: Comparison is made to chest 09/23/2022 FINDINGS: Lungs and pleura: Previously noted pneumothorax has resolved. There is a small left pleural effusion. There are groundglass and airspace opacities in the left lung and left greater than right atelectasis. A chest tube is noted in the left lung base. Heart and pericardium: Heart size is normal. No pericardial effusion. Vessels: Unremarkable. Mediastinum and reginaldo: Unremarkable. Chest wall and lower neck: Chest tube is seen on the left with a small amount of subcutaneous emphysema. Abdomen: Hepatic steatosis is noted. Bones: Fractures of the sixth through eighth ribs are again seen. IMPRESSION: 1. Satisfactory appearance of chest tube with no significant residual pneumothorax small left pleural effusion. Airspace opacities may represent aspi ration and/or pneumonia. 2. Redemonstration of left-sided rib fractures. ACT 112: Negative or not required by law. Electronically signed by: Addi Mcgowan M.D. 09/28/2022 1:40 PM Chest X-Ray 09/30/22 12:00 XR chest 1V portable CLINICAL HISTORY: Post clamping of chest tube TECHNIQUE: Single frontal radiograph of the chest was obtained. Comparison: Comparison is made to chest radiograph 10/01/2019 FINDINGS: Stable appearance of left chest tube. The cardiomediastinal silhouette is normal. The lungs are clear. No evidence of pleural effusion or pneumothorax. Partial visualization of left rib fractures. IMPRESSION: Interval stability of chest tube. No evidence of pneumothorax. Redemonstration of left rib fractures. ACT 112: Negative or not required by law. Electronically signed by: Addi Mcgowan M.D. 09/30/2022 12:23 PM Ordered Studies 09/28/22 12:44 CT chest diagnostic w con Stat Hospital Course (1) Acute respiratory failure with hypoxia: (2) Pneumothorax, left: (3) Left rib fracture: (4) Pulmonary edema: (5) COPD (chronic obstructive pulmonary disease): (6) Pulmonary nodule: (7) Severe obesity (BMI 35.0-35.9 with comorbidity): Plan Acute respiratory failure with hypoxia Left traumatic pneumothorax Secondary to fall with left-sided rib fractures Left lower lobe atelectasis Small left pleural effusion Reexpansion pulmonary edema --CT Chest:Acute nondisplaced fractures of the lateral sixth and seventh ribs with small left-sided hydropneumothorax. Bibasilar opacities suggest atelectasis. Hepatic steatosis with hepatomegaly. --S/P chest tube placement on 09/28/2022 Weaned off of supplemental oxygen Saturating well on room air Chest x-ray today showed no signs of pneumothorax Chest tube clamped and repeated chest x-ray in 4 hours showed no pneumothorax. Appreciate pulmonology input Continue Incentive spirometry Advised not to lift anything heavy for at least 2 to 3 weeks. No flying for 6 weeks. No scuba diving for 6 to 8 weeks. Plan to discharge home today Pulmonary nodule Incidental finding on CT Follow-up as outpatient COPD No signs of exacerbation Continue home inhalers Monitor Hyperlipidemia Continue statin GERD Continue PPI BPH Continue Flomax DVT Px: Lovenox SQ Code Status Full Code Disposition Home Total Time Total Time Spent Total Time Spent (In Minutes): 54 minutes Discharge Plan Discharge Items Patient Disposition: Home - Self-Care Reason For Visit: LEFT PNEUMOTHORAX Discharge Diagnosis: Acute respiratory failure with hypoxia Left traumatic pneumothorax Left-sided rib fractures Pulmonary nodule Activity: Per Instructions section Exercise/Sports: Wait until after follow-up appointment Non-emergency contact: Primary Care Provider Call non-emergency contact if: you have any medication questions, your symptoms worsen, your pain is concerning for you and you have a fever Follow-up/Referrals: Torres Camargo MD [Outside Practitioners] - (Date & Time 10/22/2022 8:20 AM Provider Md [facility] Ramón Sotelo PA-C [Primary Care Provider] - (Date & Time 10/05/2022 11:00 AM Provider Ramón Sotelo PA-C Department [facility] ) Diet: Heart Healthy Addtl Attending Provider Instructions: Follow-up with your primary care physician on 10/22/2022 8:20 AM Follow-up with your case packer and sealer Dr. Cardona as needed --No lifting anything heavy for at least 2 to 3 weeks. No flying for 6 weeks. No scuba diving for 6 to 8 weeks as recommended by your Fringe Weaver Seek immediate medical attention if your symptoms reoccur or worsen Please take all medications as instructed on discharge list below. Please call if you have any questions or problems. You can reach a [facility] hospitalist on duty at [facility] 24 hours a day by calling [phone] Pending Studies at Discharge: No Stand-Alone Forms: My [facility] [employer], Smoking Cessation Medications and DC Order Prescriptions: New oxycodone 5 mg Tablet 5 mg PO Q8H PRN (Reason: pain) Qty: 12 0RF dextromethorphan polistirex [Delsym 12 hour] 30 mg/5 mL Suspension,Extended Rel 12 Hr 30 mg PO Q12H PRN (Reason: cough) Qty: 89 0RF Continued albuterol sulfate [Ventolin HFA] 90 mcg/actuation HFA aerosol inhaler 2 puffs INH Q6H PRN (Reason: Shortness Of Breath) Neuriva De-Stress 100-200-10 mg capsule 1 cap PO DAILY okvmjkybopzrnhdu-unbhzrcwi-GP 4-10-10 mg tablet 1 tab PO Q8 PRN (Reason: allergy symptoms and cough ) Qty: 60 0RF Rx Instructions: Take 1 Tab PO BID for 5 days then PRN. naproxen sodium [Aleve] 220 mg Tablet 440 mg PO Q12H PRN (Reason: Pain) simethicone [Gas-X Extra Strength] 125 mg Tablet,Chewable 125 mg PO BID PRN (Reason: Gas ) tamsulosin 0.4 mg capsule 0.4 mg PO DAILY atorvastatin 20 mg tablet 20 mg PO DAILY esomeprazole magnesium [Nexium] 20 mg Capsule,Delayed Release(Dr/Ec) 20 mg PO DAILY fluticasone furoate-vilanterol [Breo Ellipta] 100-25 mcg/dose blister with device 1 inh INHALATION QAM fluticasone propionate [Flonase Allergy Relief] 50 mcg/actuation spray,suspension 1 spray INTNAS DAILY PRN (Reason: Other) Rx Instructions: administer into each nostril Discharge Orders: Discharge Order (Routine); Ordered 09/30/22 Ordered By: Renato Fajardo Admission Data Admit Date/Time: 09/28/22 15:08 Attending Provider: Renato Fajardo Admit Provider: Kaitlin Cardoza Primary Care Provider: Ramón Sotelo Other Providers: Kaitlin Cardoza ; Jung Cardona
== END 2022-09-30 16:47 | disposition home or self-care (01) | DRG 199 ==
LOC: ED 08:06 → SUATTDRO 15:08 → EDINP 15:08 → 2S 16:51